=== PATIENT | male | born 1980 | race Hispanic/Latino ===

== ENCOUNTER 2017-11-11 14:55 | Emergency (ER) | payer MEDICARE, MEDICAID ==
[2017-11-11 16:02] LABS: Bilirubin Negative (Negative); Blood, Urine Large (Negative); Glucose, Urine (Dipstick) >=1000 mg/dL (Negative); Leukocyte Moderate (Negative); Nitrite Negative (Negative); Protein, Urine (Dipstick) 100 mg/dL (Neg-Trace); Urobilinogen 0.2 mg/dL (0.2-1.0); pH, Urine 6.5 (5.0-9.0)
[2017-11-11 16:03] LABS: Clarity Hazy (Clear)
[2017-11-11 16:20] LABS: Bacteria/HPF 1+ HPF (None Seen); Hyaline Casts/LPF NONE SEEN LPF (0-3 Hyaline)
[2017-11-11] MEDS ORDERED: Sulfameth/Trimethoprim DS 800-160mg TAB ONE (16:44)
[2017-11-11] MEDS ORDERED: Lidocaine 1% PF 5 ML VIAL ONE (16:45)
[2017-11-11] MEDS ORDERED: cefTRIAXone\\ROCEPHIN 1 GM VIAL ONE (16:45)
== END 2017-11-11 17:22 | disposition home or self-care (01) ==
LOC: ERS 14:55
DX: N30.91 Cystitis, unspecified with hematuria (principal); E11.9 Type 2 diabetes mellitus without complications; F31.9 Bipolar disorder, unspecified
CPT/HCPCS: 81003; 81015; 87086; 96372; J0696; J2001

== ENCOUNTER 2019-09-27 22:12 | Emergency (ER) | payer MEDICARE, MEDICAID ==
[2019-09-27 22:42] LABS: #Eosinphils 0.1 thou/uL (0.0-0.7); #Lymphocytes 2.1 thou/uL (1.20-3.40); #Monocytes 0.8 thou/uL (0.11-0.59); #Neutrophils 4.5 thou/uL (1.40-6.50); %Basophils 0.6 % (0.0-1.0); %Lymphocytes 27.5 % (21.0-51.0); %Neutrophils 59.9 % (42.0-75.0); Hemoglobin 10.6 g/dL (14.0-18.0); Mean Corpuscular HGB CONC 33.7 g/dL (32.0-36.0); Mean Corpuscular Hemoglobin 30.1 pg (27.0-31.0); Mean Corpuscular Volume 89.3 fL (78.0-98.0); Mean Platelet Volume 8.5 fL (7.4-10.4); Platelet Count 113 thou/uL (130-400); Red Blood Cell (RBC) Count 3.53 mill/uL (4.70-6.10); White Blood Cell (WBC) Count 7.5 thou/uL (4.8-10.8)
[2019-09-27] MEDS ORDERED: Lorazepam 2 MG/ML VIAL ONE (22:45)
--- NOTE | 2019-09-27 22:46 | CT ---
CT head noncontrast HISTORY: Seizure. COMPARISON: 09/07/2016. FINDINGS: There is no evidence of acute intracranial hemorrhage or infarct. Mild distention of the ventricular system is similar in appearance to the previous study. There is no mass effect or shift of midline structures. Visualized paranasal sinuses remain well aerated. Elongation of the skull with the appearance of dolichocephaly is stable. IMPRESSION : No acute intracranial abnormalities are demonstrated.
[2019-09-27 23:04] LABS: ALT (SGPT) 7 U/L (8-55); AST (SGOT) 11 U/L (5-34); Albumin 2.6 g/dL (3.5-5.0); Alkaline Phosphatase 92 U/L (40-110); Anion Gap 10 mmol/L (10-20); BUN (Urea Nitrogen) 18 mg/dL (8.9-20.6); Bilirubin, Total 0.3 mg/dL (0.2-1.2); Calc. Creatinine Clearance 0 mL/min (70-130); Calcium 7.2 mg/dL (7.8-10.44); Carbon Dioxide 27 mmol/L (22-29); Chloride 96 mmol/L (98-107); Estimated GFR-MDRD 67; Globulin 3.1 g/dL (2.4-3.5); Glucose 437 mg/dL (70-105); Potassium 3.2 mmol/L (3.5-5.1); Protein, Total 5.7 g/dL (6.0-8.3); Sodium 130 mmol/L (136-145)
== END 2019-09-27 23:20 | disposition home or self-care (01) ==
LOC: ERS 22:12
DX: G40.909 Epilepsy, unspecified, not intractable, without status epilepticus (principal); E11.9 Type 2 diabetes mellitus without complications; F31.9 Bipolar disorder, unspecified; Z79.899 Other long term (current) drug therapy
CPT/HCPCS: 36415; 70450; 80053; 80164; 84146; 85025; 93005; 96374; J2060

== ENCOUNTER 2019-10-29 18:06 | Emergency (ER) | payer MEDICARE, MEDICAID ==
[2019-10-29] MEDS ORDERED: Lidocaine Viscous Sol 2% 15 ml UD Cup ONE (18:27)
[2019-10-29] MEDS ORDERED: Mag-Al 1200 mg/1200 mg/30 ML UDCUP ONE (18:27)
[2019-10-29 18:42] LABS: #Eosinphils 0.1 thou/uL (0.0-0.7); #Lymphocytes 2.4 thou/uL (1.20-3.40); #Monocytes 0.6 thou/uL (0.11-0.59); #Neutrophils 4.2 thou/uL (1.40-6.50); %Basophils 0.5 % (0.0-1.0); %Eosinophils 1.2 % (0.0-10.0); %Monocytes 8.6 % (0.0-10.0); %Neutrophils 56.7 % (42.0-75.0); Hemoglobin 12.5 g/dL (14.0-18.0); Mean Corpuscular HGB CONC 34.2 g/dL (32.0-36.0); Mean Corpuscular Hemoglobin 30.6 pg (27.0-31.0); Mean Corpuscular Volume 89.7 fL (78.0-98.0); Mean Platelet Volume 8.1 fL (7.4-10.4); Platelet Count 200 thou/uL (130-400); RBC Distribution Width 13.4 % (11.5-14.5); Red Blood Cell (RBC) Count 4.09 mill/uL (4.70-6.10); White Blood Cell (WBC) Count 7.4 thou/uL (4.8-10.8)
[2019-10-29 19:01] LABS: ALT (SGPT) 8 U/L (8-55); AST (SGOT) 13 U/L (5-34); Albumin 2.9 g/dL (3.5-5.0); Alkaline Phosphatase 108 U/L (40-110); Anion Gap 14 mmol/L (10-20); BUN (Urea Nitrogen) 32 mg/dL (8.9-20.6); Bilirubin, Total 0.2 mg/dL (0.2-1.2); Calc. Creatinine Clearance 0 mL/min (70-130); Calcium 8.2 mg/dL (7.8-10.44); Carbon Dioxide 24 mmol/L (22-29); Chloride 97 mmol/L (98-107); Estimated GFR-MDRD 64; Globulin 3.9 g/dL (2.4-3.5); Glucose 400 mg/dL (70-105); Lipase 122 U/L (8-78); Potassium 5.8 mmol/L (3.5-5.1); Protein, Total 6.8 g/dL (6.0-8.3); Sodium 129 mmol/L (136-145)
[2019-10-29 19:41] LABS: Bacteria/HPF None Seen HPF (None Seen); Bilirubin Negative (Negative); Blood, Urine 1+ (Negative); Clarity Clear (Clear); Glucose, Urine (Dipstick) Greater than 1000 mg/dL (Negative); Ketone, Urine Negative (Negative); Leukocyte Negative Leu/uL (Negative); Nitrite Negative (Negative); Protein, Urine (Dipstick) 100 mg/dL (Neg-Trace); Specific Gravity, Urine 1.021 (1.002-1.036); Squamous Epithelial None Seen HPF (0-3); Urobilinogen Normal mg/dL (Less than 2); WBC/HPF 0-3 HPF (0-3)
[2019-10-29] MEDS ORDERED: Insulin Regular 300 UNITS/3 ML VIAL ONE (19:49)
--- NOTE | 2019-10-30 09:31 | RAD ---
CHEST ONE VIEW: 10/29/19 HISTORY: Abdominal pain, chest pain. COMPARISON: Radiograph 09/29/12. FINDINGS: Abnormal peripheral opacities in the lungs. Heart size is enlarged. Pulmonary arteries are dilated. N o pneumothorax. Poor lung inspiratory effort. No acute osseous abnormality. IMPRESSION: Abnormal peripheral opacities in the lung can be seen with a typical viral infectious process. A repe at examination with full inspiration recommended. POS: HOME
== END 2019-10-29 20:04 | disposition home or self-care (01) ==
LOC: ERS 18:06
DX: R10.13 Epigastric pain (principal); R10.816 Epigastric abdominal tenderness; E11.9 Type 2 diabetes mellitus without complications; F31.9 Bipolar disorder, unspecified; Z79.899 Other long term (current) drug therapy
CPT/HCPCS: 71045; 80053; 81003; 81015; 83690; 84484; 85025; 93005; J1815

== ENCOUNTER 2019-12-03 12:13 | Observation (INO) | payer MEDICARE, MEDICAID, OTHER ==
[2019-12-03] MEDS ORDERED: Dextrose 50% Abboject 50 ML SYRINGE ONE (12:43)
--- NOTE | 2019-12-03 12:54 | RAD ---
EXAM: Single view of the chest HISTORY: Lethargy COMPARISON: 10/29/2019 FINDINGS: Single view of the chest shows an enlarged but stable cardiomediastinal silhouette. The pa tient is status post sternotomy. There is no evidence of consolidation, mass, or pleural effusion. No acute osseous abnormality. IMPRESSION: No evidence of acute cardiopulmonary disease
[2019-12-03 13:21] LABS: Base Excess-Venous 0.6 mmol/L (-2.0 to 3.0); Bicarbonate (HCO3v) 28.2 mmol/L (22.0-28.0); CO2 Tension (PvCO2) 61.2 mmHg (40.0-50.0); Calcium, Ionized 1.07 mmol/L (See Comments:); Chloride 100 mmol/L (98-107); Hemoglobin - Calc 9.4 g/dL (14.0-18.0); Potassium 3.6 mmol/L (3.5-5.1); Sodium 139 mmol/L (138-145); T. Carbon Dioxide 30.1 mmol/L (22.0-28.0); vO2 Saturation-calc 55.8 % (60.0-85.0)
[2019-12-03 13:35] LABS: Lactic Acid 1.7 mmol/L (0.5-2.2)
[2019-12-03 13:39] LABS: ALT (SGPT) Less than 7 U/L (8-55); AST (SGOT) 14 U/L (5-34); Albumin 2.6 g/dL (3.5-5.0); Alkaline Phosphatase 75 U/L (40-110); Anion Gap 15 mmol/L (10-20); BUN (Urea Nitrogen) 15 mg/dL (8.9-20.6); Bilirubin, Total 0.2 mg/dL (0.2-1.2); Calc. Creatinine Clearance 0 mL/min (70-130); Calcium 7.3 mg/dL (7.8-10.44); Carbon Dioxide 24 mmol/L (22-29); Chloride 104 mmol/L (98-107); Estimated GFR-MDRD Greater than 90; Globulin 2.8 g/dL (2.4-3.5); Glucose 68 mg/dL (70-105); Potassium 3.5 mmol/L (3.5-5.1); Protein, Total 5.4 g/dL (6.0-8.3); Sodium 139 mmol/L (136-145)
[2019-12-03 14:17] LABS: #Basophils 0.1 thou/uL (0.0-0.2); #Lymphocytes 1.4 thou/uL (1.20-3.40); #Monocytes 0.3 thou/uL (0.11-0.59); #Neutrophils 3.5 thou/uL (1.40-6.50); %Basophils 1.3 % (0.0-1.0); %Eosinophils 0.6 % (0.0-10.0); %Lymphocytes 26.6 % (21.0-51.0); %Monocytes 5.8 % (0.0-10.0); %Neutrophils 65.7 % (42.0-75.0); Hemoglobin 10.1 g/dL (14.0-18.0); Mean Corpuscular HGB CONC 32.7 g/dL (32.0-36.0); Mean Corpuscular Hemoglobin 30.6 pg (27.0-31.0); Mean Corpuscular Volume 93.7 fL (78.0-98.0); RBC Distribution Width 12.9 % (11.5-14.5); Red Blood Cell (RBC) Count 3.28 mill/uL (4.70-6.10); White Blood Cell (WBC) Count 5.3 thou/uL (4.8-10.8)
[2019-12-03 14:44] LABS: MDiff Complete? YES; Mean Platelet Volume 7.9 fL (7.4-10.4); Platelet Count 82 thou/uL (130-400); Platelet Morphology Comment Appears Decreased; Polychromasia SLIGHT = 2-3 cells (100X) (0-2/hpf)
--- NOTE | 2019-12-03 15:22 | PDOC.HHP ---
Hospitalist HPI - History of Present Illness hypoglycemia History of Present Illness: Mr. 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 patient went to PCP (Dr. Guerra) and was found to be hyperglycemic (mother can't remember how high) so was started on metformin 1000mg PO bid in addition to previous Jardiance and novolin 70/30 (80u in AM, 60u in PM). This morning, found him to be drowsy so brought him to the ED. On encounter, lying comfortably in bed. Appears mildly drowsy. Denies chest pain, palpitations, dyspnea, cough, pleuritic pain, abdominal pain, worsening diarrhea (has chronic diarrhea), dysuria, hematuria, focal weakness. ED Course: In the ED, found to be hypoglycemic, drowsy, and hypothermic, acute respiratory acidosis. Started on D10w and bear hug, alertness improved. Pending EKG Hospitalist ROS - Review of Systems Constitutional: denies: chills, sweats ENT: denies: nose discharge, nose congestion, mouth pain, mouth swelling, throat pain, throat swelling Respiratory: denies: cough, shortness of breath, pleuritic pain Cardiovascular: denies: chest pain, palpitations, orthopnea Gastrointestinal: denies: nausea, vomiting, abdominal pain, diarrhea Genitourinary: denies: dysuria, frequency, hematuria Hospitalist History - Past Medical History Source: family Cardiac: reports: CHF, Valve insufficiency SPRAGGER: reports: Other (mental retardation, cerebral palsy) Heme/Onc: reports: Anemia NOS Psych: reports: Bipolar Endocrine: reports: Diabetes - Past Surgical History Other Surgical History: tetralogy of fallot repair - Family History Family History: reports: no pertinent history - Social History Smoking Status: Never smoker Alcohol: reports: None Drugs: reports: none Living Situation: With Family (has 24 hour monitoring sitter then mother who works partition setter) Activity level: independent ambulation - Exam General Appearance: NAD General - other findings: mild drowsiness Eye: PERRL, anicteric sclera ENT: moist mucosa ENT - other findings: scaphocephalic Neck: no JVD Heart: RRR, no gallops, no rubs Heart - other findings: difficult to assess murmur, patient verbal. occasional PVC on heart monitor Respiratory: CTAB, no wheezes, no rales, no ronchi Gastrointestinal: soft, non-tender, non-distended, normal bowel sounds Extremities: 2+ LE edema Extremities - other findings: b/l equal pitting to knee level Psychiatric: normal affect, normal behavior, oriented to person, oriented to place. negative: oriented to time Psychiatric - other findings: per mother at bedside, patient is at baseline Hospitalist Results - Labs Result Diagrams: 12/03/19 14:03 12/03/19 18:18 Lab results: WBC 5.3 thou/uL (4.8-10.8) 12/03/19 14:03 Hgb 10.1 g/dL (14.0-18.0) L 12/03/19 14:03 Hct 30.8 % (42.0-52.0) L 12/03/19 14:03 MCV 93.7 fL (78.0-98.0) 12/03/19 14:03 Plt Count 82 thou/uL (130-400) L 12/03/19 14:03 Neutrophils % 65.7 % (42.0-75.0) 12/03/19 14:03 VBG pCO2 61.2 mmHg (40.0-50.0) H* 12/03/19 13:22 VBG pO2 34.1 mmHg (35.0-45.0) L 12/03/19 13:22 Sodium 139 mmol/L (136-145) 12/03/19 12:25 Potassium 3.5 mmol/L (3.5-5.1) 12/03/19 12:25 Chloride 104 mmol/L (98-107) 12/03/19 12:25 Carbon Dioxide 24 mmol/L (22-29) 12/03/19 12:25 BUN 15 mg/dL (8.9-20.6) 12/03/19 12:25 Creatinine 0.82 mg/dL (0.7-1.3) 12/03/19 12:25 Glucose 68 mg/dL (70-105) L 12/03/19 12:25 Lactic Acid 1.7 mmol/L (0.5-2.2) 12/03/19 12:25 Calcium 7.3 mg/dL (7.8-10.44) L 12/03/19 12:25 Total Bilirubin 0.2 mg/dL (0.2-1.2) 12/03/19 12:25 AST 14 U/L (5-34) 12/03/19 12:25 ALT Less than 7 U/L (8-55) L 12/03/19 12:25 Alkaline Phosphatase 75 U/L (40-110) 12/03/19 12:25 Troponin I 0.026 ng/mL (< 0.028) 12/03/19 12:25 Serum Total Protein 5.4 g/dL (6.0-8.3) L 12/03/19 12:25 Albumin 2.6 g/dL (3.5-5.0) L 12/03/19 12:25 - EKG Interpretation EKG: RBBB (unknown if old or new), LAFB (bifascicular) with nonspecific repolarization changes - Radiology Interpretation Chest x-ray Status: image reviewed by me (no acute cardiopulmonary process) Hospitalist H&P A/P - Problem (1) Hypoglycemia Code(s): E16.2 - HYPOGLYCEMIA, UNSPECIFIED Status: Acute (2) Hypothermia Code(s): T68.XXXA - HYPOTHERMIA, INITIAL ENCOUNTER Status: Acute (3) Psychomotor retardation Code(s): F45.9 - SOMATOFORM DISORDER, UNSPECIFIED Status: Acute (4) Cerebral palsy Code(s): G80.9 - CEREBRAL PALSY, UNSPECIFIED Status: Acute (5) Tetralogy of Fallot s/p repair Code(s): Z87.74 - PERSONAL HISTORY OF CONGENITAL MALFORM OF HEART AND CIRC SYS Status: Acute (6) Valvular cardiomyopathy Code(s): I42.8 - OTHER CARDIOMYOPATHIES Status: Acute - Plan Plan: * Iatrogenic symptomatic hypoglycemia * T2DM * mild hypothermia * acute type 2 respiratory failure * increased hyperglycemic medication dosage yesterday while continuing long acting meds such as jardiance * p/w symptomatic hypoglycemia * remains hypoglycemic despite d10, likely due to long acting diabetics * * hold diabetic medications; correction dose * UA to estimate activity of jardiance * hypoglycemic protocol * serum glucose if hypoglycemic based on subq * passive warming * * mental retardation * cerebral palsy * continue home meds * * full code * GI PPx: no ix * DVT PPx: lovenox *
[2019-12-03 15:58] LABS: Glucose 101 mg/dL (70-105)
[2019-12-03 17:30] LABS: Bacteria/HPF None Seen HPF (None Seen); Bilirubin Negative (Negative); Blood, Urine 1+ (Negative); Clarity Clear (Clear); Glucose, Urine (Dipstick) Greater than 1000 mg/dL (Negative); Ketone, Urine Negative (Negative); Leukocyte Negative Leu/uL (Negative); Nitrite Negative (Negative); Protein, Urine (Dipstick) 100 mg/dL (Neg-Trace); RBC/HPF 0-3 HPF (0-3); Specific Gravity, Urine 1.006 (1.002-1.036); Squamous Epithelial None Seen HPF (0-3); Urobilinogen Normal mg/dL (Less than 2); WBC/HPF 0-3 HPF (0-3)
[2019-12-03 17:43] VITALS: BMI 25.2
[2019-12-03] MEDS ORDERED: Dextrose 50% Abboject 50 ML SYRINGE SLOW IVP PRN (17:50)
[2019-12-03] MEDS ORDERED: Dextrose 5% in Water 1,000 ML IV PRN (17:50)
[2019-12-03] MEDS ORDERED: Ondansetron ODT 4 MG TAB SL PRN (18:00)
[2019-12-03] MEDS ORDERED: Sodium Chloride 0.9% 1,000 ML IV SCH (18:00)
[2019-12-03] MEDS ORDERED: Ondansetron PF 4 MG/2 ML Vial IVP PRN (18:00)
[2019-12-03] MEDS ORDERED: Acetaminophen 325 MG TAB PO PRN (18:00)
[2019-12-03 18:44] LABS: Glucose 108 mg/dL (70-105)
[2019-12-03] MEDS ORDERED: Dextrose 5 % And 0.9 % NaCl 1,000 ML IV SCH (19:45)
[2019-12-03 20:13] LABS: Hemoglobin 9.4 g/dL (14.0-18.0); Platelet Count 97 thou/uL (130-400)
[2019-12-03] MEDS ORDERED: levETIRAcetam 500 MG TAB PO SCH ×2 (21:00→22:30)
[2019-12-03] MEDS ORDERED: HumaLOG 300 UNITS/3 ML VIAL SC PRN (21:38)
[2019-12-03] MEDS: Carvedilol 3.125 MG TAB PO SCH (22:22)
[2019-12-03] MEDS: risperiDONE 1 MG TAB PO SCH (22:22)
[2019-12-03 22:35] LABS: Glucose 143 mg/dL (70-105)
[2019-12-04 05:03] LABS: #Basophils 0.1 thou/uL (0.0-0.2); #Lymphocytes 2.5 thou/uL (1.20-3.40); #Monocytes 0.8 thou/uL (0.11-0.59); #Neutrophils 5.2 thou/uL (1.40-6.50); %Basophils 0.6 % (0.0-1.0); %Eosinophils 0.3 % (0.0-10.0); %Lymphocytes 29.2 % (21.0-51.0); %Monocytes 9.3 % (0.0-10.0); %Neutrophils 60.6 % (42.0-75.0); Hemoglobin 9.3 g/dL (14.0-18.0); Mean Corpuscular HGB CONC 33.5 g/dL (32.0-36.0); Mean Corpuscular Volume 92.8 fL (78.0-98.0); Mean Platelet Volume 8.1 fL (7.4-10.4); Platelet Count 99 thou/uL (130-400); Red Blood Cell (RBC) Count 2.99 mill/uL (4.70-6.10); White Blood Cell (WBC) Count 8.6 thou/uL (4.8-10.8)
[2019-12-04 05:28] LABS: ALT (SGPT) Less than 7 U/L (8-55); AST (SGOT) 9 U/L (5-34); Albumin 2.3 g/dL (3.5-5.0); Alkaline Phosphatase 67 U/L (40-110); Anion Gap 12 mmol/L (10-20); BUN (Urea Nitrogen) 14 mg/dL (8.9-20.6); Bilirubin, Total 0.2 mg/dL (0.2-1.2); Calc. Creatinine Clearance 108 mL/min (70-130); Carbon Dioxide 27 mmol/L (22-29); Chloride 104 mmol/L (98-107); Estimated GFR-MDRD Greater than 90; Globulin 2.8 g/dL (2.4-3.5); Glucose 114 mg/dL (70-105); Potassium 3.7 mmol/L (3.5-5.1); Protein, Total 5.1 g/dL (6.0-8.3); Sodium 139 mmol/L (136-145)
[2019-12-04] MEDS ORDERED: levETIRAcetam 500 MG TAB PO SCH ×2 (09:00→21:00)
[2019-12-04] MEDS: Carvedilol 3.125 MG TAB PO SCH ×2 (09:56→20:50)
[2019-12-04] MEDS: levETIRAcetam 500 MG TAB PO SCH (09:57)
[2019-12-04] MEDS: risperiDONE 1 MG TAB PO SCH ×2 (09:58→20:49)
[2019-12-04 11:56] LABS: SARS-CoV-2 MS2 Positive; SARS-CoV-2 N Gene Negative; SARS-CoV-2 S Gene Negative; SARS-CoV-2 by NAA Not Detected (NotDetected); SARS-CoV-2 orf1ab Negative
--- NOTE | 2019-12-04 12:51 | PDOC.HOSPP ---
- Subjective Encounter Date: 12/04/19 Encounter Time: 09:00 Subjective: no overnight events. this morning, feeling well and at baseline. Has no complaints. Mother apparently injects patient with insulin inconsistently. Had that also requires persistent care, so raised option of sending patient to short term facility but mother says that son can't be without her. - Objective Vital Signs & Weight: Vital Signs (12 hours) Temp Pulse Pulse Pulse Resp BP BP 12/04/19 11:13 97.5 F L 82 20 12/04/19 08:52 71 77 126/80 139/81 12/04/19 07:22 98.3 F 76 16 12/04/19 05:00 98.4 F 73 18 BP Pulse Ox 12/04/19 11:13 133/83 98 12/04/19 08:52 12/04/19 07:22 126/80 98 12/04/19 05:00 124/77 97 Weight Weight 156 lb 4.8 oz I&O: 12/03/19 12/04/19 12/05/19 06:59 06:59 06:59 Intake Total 240 Balance 240 Result Diagrams: 12/04/19 04:37 12/04/19 04:37 Additional Labs: Accuchecks 12/04/19 12/04/19 12/03/19 11:23 06:06 17:10 POC Glucose 128 H 127 H 77 12/03/19 12/03/19 16:20 14:07 POC Glucose 86 209 H Hospitalist ROS - Review of Systems Constitutional: denies: chills, sweats Respiratory: denies: cough, shortness of breath, pleuritic pain Cardiovascular: denies: chest pain, palpitations, orthopnea, paroxysmal noc. dyspnea Gastrointestinal: denies: nausea, vomiting, abdominal pain Genitourinary: denies: dysuria, hematuria - Medication Medications: Active Medications Generic Name Dose Route Start Last Admin Trade Name Freq PRN Reason Stop Dose Admin Carvedilol 3.125 mg 12/03/19 21:00 12/04/19 09:56 Carvedilol 3.125 Mg Tab PO 3.125 mg BID CALVIN Administration Divalproex Sodium 1,000 mg 12/03/19 21:00 12/04/19 09:57 Divalproex Sodium Er 500 Mg Tablet PO 1,000 mg BID CALVIN Administration Levetiracetam 2,000 mg 12/04/19 09:00 12/04/19 09:57 Levetiracetam 500 Mg Tab PO 2,000 mg QAM CALVIN Administration Pantoprazole Sodium 40 mg 12/04/19 09:00 12/04/19 09:58 Pantoprazole 40 Mg Tab PO 40 mg DAILY CALVIN Administration Risperidone 1 mg 12/03/19 21:00 12/04/19 09:58 Risperidone 1 Mg Tab PO 1 mg BID CALVIN Administration - Exam General Appearance: NAD, awake alert Neck: no JVD Heart: RRR, no gallops Heart - other findings: decrescensdo diastolic murmur Respiratory: CTAB, no wheezes, no rales, no ronchi Gastrointestinal: soft, non-tender, non-distended, normal bowel sounds Extremities: 1+ LE edema Extremities - other findings: b/l pitting equal Psychiatric: oriented to person, oriented to place. negative: oriented to time Hosp A/P (1) Hypoglycemia Code(s): E16.2 - HYPOGLYCEMIA, UNSPECIFIED Status: Acute (2) Hypothermia Code(s): T68.XXXA - HYPOTHERMIA, INITIAL ENCOUNTER Status: Acute (3) Psychomotor retardation Code(s): F45.9 - SOMATOFORM DISORDER, UNSPECIFIED Status: Acute (4) Cerebral palsy Code(s): G80.9 - CEREBRAL PALSY, UNSPECIFIED Status: Acute (5) Tetralogy of Fallot s/p repair Code(s): Z87.74 - PERSONAL HISTORY OF CONGENITAL MALFORM OF HEART AND CIRC SYS Status: Acute (6) Valvular cardiomyopathy Code(s): I42.8 - OTHER CARDIOMYOPATHIES Status: Acute - Plan Iatrogenic symptomatic hypoglycemia * T2DM * mild hypothermia (resolved) * acute type 2 respiratory failure (resolved) * BG well controlled and stable overnight * inconsistent diabetic management; significant burden on mother even though she has some help; refused placement in facility * jardiance long half life, effect should be reduced by now * a1c grossly elevated, explained options to mother; do to lack of support, will attempt to better control BG with oral medications as per mother's request * * stop D5 fluids * start metformin low dose * mother informed to seek blanket folder to address fluctuating BG levels * hypoglycemia protocol * * mental retardation * cerebral palsy * continue home meds * * full code * GI PPx: no ix * DVT PPx: lovenox * ELOS: 1 night
[2019-12-04] MEDS: metFORMIN 500 MG TAB PO SCH (17:57)
[2019-12-04] MEDS: HumaLOG 300 UNITS/3 ML VIAL SC PRN (17:58)
[2019-12-04] MEDS: Torsemide 20 MG TAB PO SCH (20:49)
[2019-12-05 05:28] LABS: Anion Gap 12 mmol/L (10-20); BUN (Urea Nitrogen) 15 mg/dL (8.9-20.6); Calc. Creatinine Clearance 98 mL/min (70-130); Calcium 7.5 mg/dL (7.8-10.44); Carbon Dioxide 26 mmol/L (22-29); Chloride 101 mmol/L (98-107); Estimated GFR-MDRD 82; Glucose 190 mg/dL (70-105); Magnesium 2.2 mg/dL (1.6-2.6); Potassium 4.3 mmol/L (3.5-5.1); Sodium 135 mmol/L (136-145)
[2019-12-05] MEDS: HumaLOG 300 UNITS/3 ML VIAL SC PRN (05:37)
[2019-12-05] MEDS ORDERED: metFORMIN 500 MG TAB PO SCH ×2 (08:30→17:00)
[2019-12-05] MEDS: levETIRAcetam 500 MG TAB PO SCH (09:01)
[2019-12-05] MEDS: Carvedilol 3.125 MG TAB PO SCH (09:01)
[2019-12-05] MEDS: risperiDONE 1 MG TAB PO SCH (09:02)
[2019-12-05] MEDS: Torsemide 20 MG TAB PO SCH (09:02)
[2019-12-05] MEDS: metFORMIN 500 MG TAB PO SCH (09:05)
[2019-12-05 11:16] VITALS: BP 120/76; TEMP 97.5
--- NOTE | 2019-12-05 23:16 | DIS ---
DATE OF ADMISSION: 12/03/2019 DATE OF DISCHARGE: 12/05/2019 HOSPITAL COURSE: Mr. Jones is a 39-year-old male with a medical history of mental retardation, cerebral palsy, and type 2 diabetes presented with drowsiness. He was diagnosed with iatrogenic hypoglycemia. Per the mother, the patient was inconsistently administered high dosages of Novolin 70/30. In addition to that, the patient was on long-acting Jardiance. The date prior to presentation, the patient had a high blood glucose and presented to his primary care physician who reportedly prescribed him with an increased insulin regimen. During his inpatient stay, the patient initially was borderline hypoglycemic despite D10. However once the effects of Jardiance wore off, the patient was started on metformin 500 b.i.d. and his blood glucose remained in the 100 to 200 range. The patient had an A1c of around 11, however, concerning the patient's difficult social situation (the mother has to take care of both of the patient and her , who is also disabled), it was decided to not continue the patient on injectable insulin, but rather attempt to maintain the patient on oral medications, pending appointment with his primary care physician. The mother was also offered placement options, but refused arguing that the patient could not be without her, without becoming agitated. On the day of discharge, the patient's blood glucose was stable, he was feeling well, and was at baseline per the mother at bedside. PHYSICAL EXAMINATION: VITAL SIGNS: Blood pressure 120/76, pulse 78, respiratory rate 16, oxygen saturation 100% on room air, temperature 97.5. GENERAL APPEARANCE: Lying comfortably in bed, awake and alert. EYES: PERRL. Anicteric sclerae. ENT: Moist mucosa, scaphocephalic. NECK: No JVD. HEART: No gallops or rubs. Decrescendo diastolic murmur most audible at the fifth left intercostal space. RESPIRATORY: Clear to auscultation bilaterally. No wheezing, rales or rhonchi. GI: Soft, nontender, nondistended. Normal bowel sounds. EXTREMITIES: Bilateral equal pitting edema, pretibial. PSYCHIATRIC: Calm and oriented to person and place, but not to time. Per the mother, it is the patient's baseline. MEDICATION LIST: Continued medications: 1. Metformin 1000 mg oral b.i.d. with meals. 2. Torsemide. 3. Pantoprazole. 4. Levetiracetam. 5. Divalproex. 6. Coreg. 7. Risperidone. Discontinued medications: 1. Jardiance. 2. Novolin 70/30. Modified medications: No modified medications. New medications: No new medications. Job ID: [id number]
== END 2019-12-05 11:42 | disposition home or self-care (01) ==
LOC: ERS 12:13 → 2SW 15:15
PROVIDERS: ADMIT Internal Medicine; ATTEND Internal Medicine
DX: E11.649 Type 2 diabetes mellitus with hypoglycemia without coma (principal); T68.XXXA Hypothermia, initial encounter; J96.00 Acute respiratory failure, unspecified whether with hypoxia or hypercapnia; F79 Unspecified intellectual disabilities; G80.9 Cerebral palsy, unspecified; E11.10 Type 2 diabetes mellitus with ketoacidosis without coma; F31.9 Bipolar disorder, unspecified; I42.8 Other cardiomyopathies; F45.9 Somatoform disorder, unspecified; Z87.74 Personal history of (corrected) congenital malformations of heart and circulatory system; Z79.4 Long term (current) use of insulin; Z79.899 Other long term (current) drug therapy; Z88.5 Allergy status to narcotic agent; Z20.828 Contact with and (suspected) exposure to other viral communicable diseases
CPT/HCPCS: 71045; 80048; 80053 ×2; 82010; 82274; 82330; 82435; 82803; 82947; 82962 ×3; 83036; 83605; 83735; 84132; 84295; 84484; 85014; 85018; 85025 ×2; 85049; 87040; 87086; 93005; 96361; 96374; 97139 ×5; 99285; U0003; 36415; 36416; 81003; 81015; 87635; G0378

== ENCOUNTER 2019-12-09 13:14 | Inpatient (IN) | payer MEDICARE, MEDICAID, OTHER ==
[2019-12-09] MEDS ORDERED: Iopamidol-370 76% 500 ML 1 ML ONE (13:37)
--- NOTE | 2019-12-09 13:48 | RAD ---
PORTABLE CHEST 1 VIEW: Date: 12/09/2019 Time: 1331 hours HISTORY: Dyspnea. COMPARISON: 12/03/2019. FINDINGS/IMPRESSION: Postop changes of median sternotomy again seen. The heart size is prominent. There is mild pulmonary vascular congestion. No lobar consolidation, pneumothoraces, or large effusions are seen. POS: OFF
[2019-12-09 13:55] LABS: #Basophils 0.1 thou/uL (0.0-0.2); #Eosinphils 0.1 thou/uL (0.0-0.7); #Lymphocytes 2.4 thou/uL (1.20-3.40); #Monocytes 0.7 thou/uL (0.11-0.59); #Neutrophils 2.7 thou/uL (1.40-6.50); %Basophils 0.9 % (0.0-1.0); %Eosinophils 1.4 % (0.0-10.0); %Lymphocytes 41.2 % (21.0-51.0); %Monocytes 11.1 % (0.0-10.0); %Neutrophils 45.4 % (42.0-75.0); Hemoglobin 9.7 g/dL (14.0-18.0); Mean Corpuscular HGB CONC 33.8 g/dL (32.0-36.0); Mean Corpuscular Hemoglobin 31.1 pg (27.0-31.0); Mean Corpuscular Volume 91.9 fL (78.0-98.0); Mean Platelet Volume 8.6 fL (7.4-10.4); Platelet Count 113 thou/uL (130-400); RBC Distribution Width 13.7 % (11.5-14.5); Red Blood Cell (RBC) Count 3.11 mill/uL (4.70-6.10); White Blood Cell (WBC) Count 5.9 thou/uL (4.8-10.8)
[2019-12-09 14:13] LABS: ALT (SGPT) 7 U/L (8-55); AST (SGOT) 15 U/L (5-34); Albumin 2.6 g/dL (3.5-5.0); Alkaline Phosphatase 77 U/L (40-110); Anion Gap 14 mmol/L (10-20); BUN (Urea Nitrogen) 21 mg/dL (8.9-20.6); Bilirubin, Total 0.2 mg/dL (0.2-1.2); CK (CPK) 333 U/L (30-200); Calc. Creatinine Clearance 0 mL/min (70-130); Calcium 7.4 mg/dL (7.8-10.44); Carbon Dioxide 23 mmol/L (22-29); Chloride 99 mmol/L (98-107); Estimated GFR-MDRD 75; Globulin 3.1 g/dL (2.4-3.5); Glucose 187 mg/dL (70-105); Lipase 22 U/L (8-78); Potassium 5.1 mmol/L (3.5-5.1); Protein, Total 5.7 g/dL (6.0-8.3); Sodium 131 mmol/L (136-145)
[2019-12-09] MEDS ORDERED: Furosemide 40 MG/4 ML VIAL ONE (15:09)
[2019-12-09] MEDS ORDERED: Aspirin Chewable 81 MG TAB ONE (15:09)
[2019-12-09] MEDS ORDERED: Nitroglycerin 2% Ointment 1 INCH/1 GM Packet ONE (15:09)
--- NOTE | 2019-12-09 15:23 | PDOC.HHP ---
Hospitalist HPI - History of Present Illness Left facial, LUE, and abdominal swelling History of Present Illness: PCP: Dr. Guerra ([place]) The patient is a 33-year-old male with a past medical history significant for tetralogy of Fallot, DM 2, epilepsy, MR and bipolar disorder that presents to the emergency department for evaluation of the above complaint. The patient has a history of tetralogy of Fallot and is actually due to have a valve replaced, however, the surgery has been delayed secondary to COVID outbreak. For the past 2 to 3 days, the patient has noticed swelling to his left upper extremity and left side of his face. He underwent molar extraction to the left side of his mouth approximately 3 weeks ago. At follow-up, he was cleared. No complications. Denies any oral pain or difficulty chewing. He denies any recent trauma to his left upper extremity. Also, he reports mild abdominal distention with associated abdominal pain on his left side, that he describes as sharp, intermittent, only when he sleeps, exacerbated and relieved by nothing. He denies feeling nauseated or vomiting. Last bowel movement was yesterday, no straining or blood. Denies any urinary symptoms. He denies chest pain, heart palpitations, lightheadedness. He does have swelling to his bilateral lower extremities, which she says is chronic. He denies feeling short of breath, MCKEON, PND, orthopnea. Denies any fever or chills. No known sick contacts. ED Course: VITAL SIGNS SunDec 09, 2019 13:15 VALERIE Whitaker Dannette BP: 1339/89, Pulse: 76, Resp: 17, Temp: 98.9 (Oral), O2 sat: 99 on (Room Air), Time: 12/09/2019 13:15. VITAL SIGNS SunDec 09, 2019 13:33 VALERIE Aaron Rachel BP: 130/91 (Sitting), MAP: 104, Pulse: 77, Resp: 16 (Non-Labored), Pain: 0, O2 sat: 98 on (Room Air), Time: 12/09/2019 13:33. Medication administration: sodium chloride 0.9 % intravenous 1 L IV Fluid Infusion Acknowledged 15:05 12/09/2019 furosemide injection 40 mg IV Push Acknowledged 15:05 12/09/2019 Nitro-Bid transdermal 1 inch Topical Acknowledged 15:05 12/09/2019 aspirin oral 324 mg Oral Acknowledged 15:05 12/09/2019 Hospitalist ROS - Review of Systems All other systems reviewed; all pertinent +/- noted in HPI/Subj - Medication Medications: divalproex tablet extended release 24 hr : Strength - 500 mg : ORAL Patient Dose: 1000 mg Oral 2 times a day. levETIRAcetam oral tablet : Strength - 500 mg : ORAL Patient Dose: variable.4 tabs am, 3 tabs pm. risperiDONE tablet : Strength - 1 mg : ORAL Patient Dose: 1 mg Oral 2 times a day. carvedilol tablet : Strength - 3.125 mg : ORAL Patient Dose: 3.125 mg Oral 2 times a day. furosemide oral tablet : Strength - 20 mg : ORAL Patient Dose: 20-40 mg Oral ONCE. Jardiance tablet : Strength - 10 mg : ORAL Patient Dose: 10 mg Oral once a day. metFORMIN TABLET : Strength - 1,000 mg : ORAL Patient Dose: Unknown Allergies: Codeine Hospitalist History - Past Medical History Source: patient, mother, RN notes reviewed Cardiac: reports: CHF, Other (Tetralogy of Fallot) MEDICAL LABORATORY ASSISTANT: reports: Seizure (Last seizure activity 3 months ago) Heme/Onc: reports: Anemia NOS Psych: reports: Bipolar Endocrine: reports: Diabetes (Type II) - Family History Family History: reports: cancer Other Family History: Noncontributory to this case - Social History Smoking Status: Never smoker Alcohol: reports: None Drugs: reports: none Living Situation: With Family Occupation: Currently unemployed Activity level: independent ambulation - Exam General Appearance: NAD, awake alert. negative: ill appearing Eye: anicteric sclera ENT: normocephalic atraumatic Neck: supple, symmetric, no JVD Heart: RRR, no gallops, no rubs, normal peripheral pulses, III/IV Respiratory: CTAB, no wheezes, no rales, no ronchi, normal chest expansion, no tachypnea Gastrointestinal: soft, non-tender, normal bowel sounds, no bruit, no guarding, no rigidity, distended Extremities: no cyanosis, 2+ LE edema Skin: no rashes Neurological: no weakness (*), no focal deficits Psychiatric: normal affect, A&O x 3 Hospitalist Results - Labs Result Diagrams: 12/09/19 13:42 12/09/19 13:42 Lab results: WBC 5.9 thou/uL (4.8-10.8) 12/09/19 13:42 Hgb 9.7 g/dL (14.0-18.0) L 12/09/19 13:42 Hct 28.6 % (42.0-52.0) L 12/09/19 13:42 MCV 91.9 fL (78.0-98.0) 12/09/19 13:42 Plt Count 113 thou/uL (130-400) L 12/09/19 13:42 Neutrophils % 45.4 % (42.0-75.0) 12/09/19 13:42 Sodium 131 mmol/L (136-145) L 12/09/19 13:42 Potassium 5.1 mmol/L (3.5-5.1) 12/09/19 13:42 Chloride 99 mmol/L (98-107) 12/09/19 13:42 Carbon Dioxide 23 mmol/L (22-29) 12/09/19 13:42 BUN 21 mg/dL (8.9-20.6) H 12/09/19 13:42 Creatinine 1.09 mg/dL (0.7-1.3) 12/09/19 13:42 Glucose 187 mg/dL (70-105) H 12/09/19 13:42 Calcium 7.4 mg/dL (7.8-10.44) L 12/09/19 13:42 Total Bilirubin 0.2 mg/dL (0.2-1.2) 12/09/19 13:42 AST 15 U/L (5-34) 12/09/19 13:42 ALT 7 U/L (8-55) L 12/09/19 13:42 Alkaline Phosphatase 77 U/L (40-110) 12/09/19 13:42 Creatine Kinase 333 U/L (30-200) H 12/09/19 13:42 Troponin I 0.019 ng/mL (< 0.028) 12/09/19 13:42 B-Natriuretic Peptide 1812.6 pg/mL (0-100) H 12/09/19 13:42 Serum Total Protein 5.7 g/dL (6.0-8.3) L 12/09/19 13:42 Albumin 2.6 g/dL (3.5-5.0) L 12/09/19 13:42 Lipase 22 U/L (8-78) 12/09/19 13:42 - EKG Interpretation EKG: Normal sinus rhythm left axis deviation right bundle branch block pulse 79 IL 162. - Radiology Interpretation Chest x-ray Status: report reviewed by me Additional Comment: Postop changes of median sternotomy again seen. The heart size is prominent. There is mild pulmonary vascular congestion. No lobar consolidation, pneumothoraces, or large effusions are seen. CT scan - abdomen Status: report reviewed by me Additional Comment: IMPRESSION: 1. Gallbladder wall edema which can be seen with hypoproteinemia, cholecystitis in the correct clinic al scenario, or secondary to liver disease versus other etiologies. 2. Hepatomegaly. 3. Mild thickening of the ball of the urinary bladder which are more thickened than expected for degree of distention. Cystitis is a possibility. 4. Small bilateral pleural effusions, small amount of ascites, generalized mesenteric edema, and findings suggesting anasarca. 5. Nonspecific inguinal lymphadenopathy with mildly prominent mesenteric lymph nodes. 6. Cardiomegaly Hospitalist H&P A/P - Problem (1) CHF exacerbation Code(s): I50.9 - HEART FAILURE, UNSPECIFIED Status: Acute (2) Tetralogy of Fallot Code(s): Q21.3 - TETRALOGY OF FALLOT Status: Chronic (3) Hyponatremia Code(s): E87.1 - HYPO-OSMOLALITY AND HYPONATREMIA Status: Acute (4) DM type 2 (diabetes mellitus, type 2) Status: Chronic (5) Bipolar disorder Code(s): F31.9 - BIPOLAR DISORDER, UNSPECIFIED Status: Chronic (6) Epilepsy Code(s): G40.909 - EPILEPSY, UNSP, NOT INTRACTABLE, WITHOUT STATUS EPILEPTICUS Status: Chronic - Plan Plan: 39/M with PMH of tetralogy of fallot presents for swelling. Admit to telemetry floor, observation status. Expected length of stay less than 2 midnights. EKG pending CXR mild pulmonary congestion. BNP 1812, troponin 0.019, Na 131 CT abdomen/pelvis 1. Gallbladder wall edema which can be seen with hypoproteinemia, cholecystitis in the correct clinical scenario, or secondary to liver disease versus other etiologies. 2. Hepatomegaly. 3. Mild thickening of the ball of the urinary bladder which are more thickened than expected for degree of distention. Cystitis is a possibility. 4. Small bilateral pleural effusions, small amount of ascites, generalized mesenteric edema, and findings suggesting anasarca. 5. Nonspecific inguinal lymphadenopathy with mildly prominent mesenteric lymph nodes. 6. Cardiomegaly #CHF exacerbation Lasix IVP, Nitropaste DW, FR, Na restrict echocardiogram Consult cardiology Trend troponins #Tetralogy of Fallot Valve replacement delayed due to COVID outbreak #Hyponatremia Mild, Na 131 Likely d/t FVO CHF exacerbation Lasix, FR Recheck level in am. #DM2 Takes metformin and Jardiance at home. Hold home anti-hyperglycemics. Start mild ISS. AC/HS checks #Epilepsy Reports last seizure 3 months ago. Restart home dose of Depakote and Keppra. #Bipolar disorder Denies SI/HI. Takes risperidone home medication. Restart home medication. Lovenox for DVT prophylaxis. Protonix for GI prophylaxis. Full code. Designated medical decision-maker is the patient's mother, Bere Jones at [phone]. Discussed case with Dr. Mata.
[2019-12-09] MEDS ORDERED: Dextrose 50% Abboject 50 ML SYRINGE SLOW IVP PRN ×2 (15:57→20:43)
[2019-12-09] MEDS ORDERED: Dextrose 5% in Water 1,000 ML IV PRN ×2 (15:57→20:43)
[2019-12-09] MEDS ORDERED: HumaLOG 300 UNITS/3 ML VIAL SC PRN ×4 (15:57→20:44)
[2019-12-09] MEDS ORDERED: Acetaminophen 325 MG TAB PO PRN (15:59)
[2019-12-09] MEDS ORDERED: Calcium Carbonate 500 MG ChewTAB PO PRN ×2 (15:59→20:45)
[2019-12-09] MEDS ORDERED: Ondansetron ODT 4 MG TAB PO PRN ×2 (15:59→20:45)
[2019-12-09] MEDS ORDERED: Senokot S 8.6-50 MG TAB PO PRN ×2 (15:59→20:45)
[2019-12-09] MEDS ORDERED: Ondansetron PF 4 MG/2 ML Vial IVP PRN ×2 (15:59→20:45)
--- NOTE | 2019-12-09 16:10 | CT ---
CT ABDOMEN AND PELVIS WITH IV CONTRAST 12/09/2019 CLINICAL INFORMATION: Abdominal swelling and pain. COMPARISON: None. Technique: Multiple contiguous axial CT images are obtained through the abdomen and pelvis with IV contrast. Cor onal reformatted images are provided. FINDINGS: Lower Chest: Small bilateral pleural effusions are present greater on the right with volume loss pres ent at each lung base. There is very mild nonspecific prominence of pulmonary arteries at the lung bases. The heart is enlarged. Vessels: Abdominal aorta is normal in caliber. Minimal vascular calcifications are seen in the iliac arteries. Abdomen: Portal vein:This exam is obtained in arterial phase of imaging which limits evaluation of the portal veins, but there is opacification of the central portal veins which appear patent. Gallbladder: There is gallbladder wall edema present. Liver: Enlarged in craniocaudal dimensions measuring 21 cm. Spleen: within normal limits. Pancreas: within normal limits. Adrenals: within normal limits. Kidneys: within normal limits. Bowel: Normal caliber. Appendix: Not visualized secondary to unopacified structures and fluid in the pelvis. Peritoneum: Small amount of intraperitoneal free fluid is seen in the abdomen and pelvis. Mesentery and Retroperitoneum: Small amount of mesenteric edema is present with edema in a presacral location as well. Few nonspecific mildly prominent lymph nodes are seen in the central mesentery. Abdominal Wall: Mild generalized subcutaneous edema. There is a mild increase in number as well as mi ldly enlarged bilateral inguinal lymph nodes. Largest right inguinal lymph node measures 1.4 cm in short axis dimension. Pelvis: Reproductive Organs: No pelvic masses. Bladder: Ball of the urinary bladder do appear mildly thickened for degree of distention. There is a small amount of adjacent fluid. Cystitis is a possibility. Correlation with urinalysis is recommended. Bones: No suspicious lytic or sclerotic osseous lesions. IMPRESSION: 1. Gallbladder wall edema which can be seen with hypoproteinemia, cholecystitis in the correct clinic al scenario, or secondary to liver disease versus other etiologies. 2. Hepatomegaly. 3. Mild thickening of the ball of the urinary bladder which are more thickened than expected for deg ree of distention. Cystitis is a possibility. 4. Small bilateral pleural effusions, small amount of ascites, generalized mesenteric edema, and find ings suggesting anasarca. 5. Nonspecific inguinal lymphadenopathy with mildly prominent mesenteric lymph nodes. 6. Cardiomegaly.
[2019-12-09 17:18] LABS: Troponin I 0.016 ng/mL (< 0.028)
--- NOTE | 2019-12-09 18:54 | ULT ---
Exam: Left upper extremity venous ultrasound with Doppler HISTORY: Left arm swelling. COMPARISON: None TECHNIQUE: Grayscale, color flow, Doppler imaging and spectral wave form analysis of the left upper e xtremity venous system FINDINGS: There is soft tissue swelling Internal jugular vein compresses and is patent. Subclavian vein is patent Axillary vein compresses and is patent Brachial vein, basilic vein, cephalic vein, ulnar vein and radial vein compresses and are patent. IMPRESSION: 1. No evidence of thrombus in the left upper extremity deep venous system 2. Left upper extremity swelling.
[2019-12-09] MEDS ORDERED: Carvedilol 3.125 MG TAB PO SCH (21:00)
[2019-12-09] MEDS ORDERED: levETIRAcetam 500 MG TAB PO SCH (21:00)
[2019-12-09] MEDS ORDERED: risperiDONE 1 MG TAB PO SCH (21:00)
[2019-12-09] MEDS: Carvedilol 3.125 MG TAB PO SCH (21:04)
[2019-12-09] MEDS: Nitroglycerin 2% Ointment 1 INCH/1 GM Packet TOP SCH (21:04)
[2019-12-09] MEDS: risperiDONE 1 MG TAB PO SCH (21:04)
[2019-12-09] MEDS: levETIRAcetam 500 MG TAB PO SCH (21:04)
[2019-12-09] MEDS ORDERED: Nitroglycerin 2% Ointment 1 INCH/1 GM Packet TOP SCH (22:00)
[2019-12-10] MEDS: Acetaminophen 325 MG TAB PO PRN ×2 (01:37→09:41)
[2019-12-10] MEDS: Furosemide 40 MG/4 ML VIAL SLOW IVP SCH ×2 (05:03→13:41)
[2019-12-10] MEDS: Nitroglycerin 2% Ointment 1 INCH/1 GM Packet TOP SCH ×3 (05:04→20:22)
[2019-12-10 05:57] LABS: Bacteria/HPF None Seen HPF (None Seen); Bilirubin Negative (Negative); Blood, Urine 2+ (Negative); Clarity Clear (Clear); Glucose, Urine (Dipstick) 300 mg/dL (Negative); Ketone, Urine Negative (Negative); Leukocyte Negative Leu/uL (Negative); Nitrite Negative (Negative); Protein, Urine (Dipstick) 300 mg/dL (Neg-Trace); Specific Gravity, Urine 1.022 (1.002-1.036); Squamous Epithelial 0-3 HPF (0-3); Urobilinogen Normal mg/dL (Less than 2); WBC/HPF 0-3 HPF (0-3); pH, Urine 6.5 (5.0-9.0)
[2019-12-10] MEDS ORDERED: Furosemide 40 MG/4 ML VIAL SLOW IVP SCH (06:00)
[2019-12-10] MEDS ORDERED: Enoxaparin Sodium 40 MG/0.4 ML SYRINGE SC SCH (09:00)
[2019-12-10] MEDS ORDERED: Aspirin Chewable 81 MG TAB PO SCH (09:00)
[2019-12-10] MEDS ORDERED: levETIRAcetam 500 MG TAB PO SCH (09:00)
[2019-12-10] MEDS: Aspirin Chewable 81 MG TAB PO SCH (09:33)
[2019-12-10] MEDS: Carvedilol 3.125 MG TAB PO SCH ×2 (09:33→20:21)
[2019-12-10] MEDS: Enoxaparin Sodium 40 MG/0.4 ML SYRINGE SC SCH (09:34)
[2019-12-10] MEDS: levETIRAcetam 500 MG TAB PO SCH ×2 (09:34→20:21)
[2019-12-10] MEDS: risperiDONE 1 MG TAB PO SCH ×2 (09:35→20:21)
--- NOTE | 2019-12-10 17:30 | PDOC.HOSPP ---
- Subjective Encounter Date: 12/10/19 Encounter Time: 11:15 Subjective: Patient up in bed states he feels much better today. Mother at bedside - Objective Vital Signs & Weight: Vital Signs (12 hours) Temp Pulse Resp BP Pulse Ox 12/10/19 16:30 98.3 F 76 20 123/82 98 12/10/19 11:33 98.6 F 86 122/84 95 12/10/19 07:48 98.7 F 94 16 163/95 H 95 Weight Weight 172 lb 8 oz I&O: 12/09/19 12/10/19 12/11/19 06:59 06:59 06:59 Intake Total 534 Output Total 350 Balance 184 Result Diagrams: 12/09/19 13:42 12/09/19 13:42 Additional Labs: Accuchecks 12/10/19 12/10/19 12/09/19 16:49 11:40 21:11 POC Glucose 158 H 248 H 199 H Hospitalist ROS - Review of Systems Cardiovascular: denies: chest pain, palpitations, orthopnea, paroxysmal noc. dyspnea, edema, light headedness, other Gastrointestinal: denies: nausea, vomiting, abdominal pain, diarrhea, constipation, melena, hematochezia, other Musculoskeletal: reports: other (Left upper extremity mild swelling.) - Medication Medications: Active Medications Generic Name Dose Route Start Last Admin Trade Name Freq PRN Reason Stop Dose Admin Acetaminophen 650 mg 12/09/19 20:45 12/10/19 09:41 Acetaminophen 325 Mg Tab PO 650 mg Q4H PRN Administration Headache/Fever/Mild Pain (1-3) Aspirin 81 mg 12/10/19 09:00 12/10/19 09:33 Aspirin Chewable 81 Mg Tab PO 81 mg DAILY CALVIN Administration Carvedilol 3.125 mg 12/09/19 21:00 12/10/19 09:33 Carvedilol 3.125 Mg Tab PO 3.125 mg BID CALVIN Administration Divalproex Sodium 1,000 mg 12/09/19 21:00 12/10/19 09:33 Divalproex Sodium Er 500 Mg Tablet PO 1,000 mg BID CALVIN Administration Enoxaparin Sodium 40 mg 12/10/19 09:00 12/10/19 09:34 Enoxaparin Sodium 40 Mg/0.4 Ml Syringe SC 40 mg 0900 CALVIN Administration Furosemide 40 mg 12/10/19 06:00 12/10/19 13:41 Furosemide 40 Mg/4 Ml Vial SLOW IVP 40 mg 0600,1400 CALVIN Administration Insulin Human Lispro 0 units 12/09/19 20:44 12/10/19 11:50 Humalog 300 Units/3 Ml Vial SC 3 unit .MILD SLIDING SCALE PRN Administration Mild Correctional Scale Levetiracetam 2,000 mg 12/10/19 09:00 12/10/19 09:34 Levetiracetam 500 Mg Tab PO 2,000 mg QAM CALVIN Administration Levetiracetam 1,500 mg 12/09/19 21:00 12/09/19 21:04 Levetiracetam 500 Mg Tab PO 1,500 mg QPM CALVIN Administration Nitroglycerin 0.5 inch 12/09/19 22:00 12/10/19 13:41 Nitroglycerin 2% Ointment 1 Inch/1 Gm Packet TOP Not Given Q8HR CALVIN Pantoprazole Sodium 40 mg 12/10/19 09:00 12/10/19 09:35 Pantoprazole 40 Mg Tab PO 40 mg DAILY CALVIN Administration Risperidone 1 mg 12/09/19 21:00 12/10/19 09:35 Risperidone 1 Mg Tab PO 1 mg BID CALVIN Administration Senna/Docusate Sodium 2 tab 12/09/19 20:45 12/10/19 01:37 Senokot S 8.6-50 Mg Tab PO 2 tab BIDPRN PRN Administration Constipation Sodium Chloride 10 ml 12/09/19 20:45 12/10/19 05:04 Flush - Normal Saline 10 Ml Syringe IVF 10 ml PRN PRN Administration Saline Flush - Exam Neck: negative: supple, symmetric, no JVD, no thyromegaly, no lymphadenopathy, no carotid bruit, JVD Heart: negative: RRR, no murmur, no gallops, no rubs, normal peripheral pulses, irregular, diminshed peripheral pulses, murmur present, II/IV, III/IV Respiratory: negative: CTAB, no wheezes, no rales, no ronchi, normal chest expansion, no tachypnea, normal percussion, rales, rhonchi, tachypneic, wheezes Gastrointestinal: negative: soft, non-tender, non-distended, normal bowel sounds, no palpable masses, no hepatomegaly, no splenomegaly, no bruit, no guarding, no rigidity, tender to palpation, distended, diminished bowl sounds, voluntary guarding Extremities: 1+ LE edema Hosp A/P (1) CHF exacerbation Code(s): I50.9 - HEART FAILURE, UNSPECIFIED Status: Acute (2) Cerebral palsy Code(s): G80.9 - CEREBRAL PALSY, UNSPECIFIED Status: Acute (3) Tetralogy of Fallot s/p repair Code(s): Z87.74 - PERSONAL HISTORY OF CONGENITAL MALFORM OF HEART AND CIRC SYS Status: Acute (4) Bipolar disorder Code(s): F31.9 - BIPOLAR DISORDER, UNSPECIFIED Status: Chronic (5) DM type 2 (diabetes mellitus, type 2) Status: Chronic - Plan We will continue IV diuresing the patient. No indication for GISELLE or arm given patient's heart failure most likely secondary to his tetralogy of Follat. Echo pending. Patient left upper extremity Doppler was negative for DVT.
[2019-12-11] MEDS: Furosemide 40 MG/4 ML VIAL SLOW IVP SCH ×2 (05:40→14:15)
[2019-12-11 06:32] VITALS: BMI 27.7
[2019-12-11 06:34] LABS: ALT (SGPT) 7 U/L (8-55); AST (SGOT) 13 U/L (5-34); Albumin 2.6 g/dL (3.5-5.0); Alkaline Phosphatase 78 U/L (40-110); Anion Gap 13 mmol/L (10-20); BUN (Urea Nitrogen) 26 mg/dL (8.9-20.6); Bilirubin, Total 0.2 mg/dL (0.2-1.2); Calc. Creatinine Clearance 74 mL/min (70-130); Calcium 7.8 mg/dL (7.8-10.44); Carbon Dioxide 26 mmol/L (22-29); Chloride 98 mmol/L (98-107); Estimated GFR-MDRD 53; Globulin 3.1 g/dL (2.4-3.5); Glucose 164 mg/dL (70-105); Potassium 4.7 mmol/L (3.5-5.1); Protein, Total 5.7 g/dL (6.0-8.3); Sodium 132 mmol/L (136-145)
[2019-12-11 06:39] LABS: #Eosinphils 0.1 thou/uL (0.0-0.7); #Lymphocytes 2.3 thou/uL (1.20-3.40); #Monocytes 0.8 thou/uL (0.11-0.59); #Neutrophils 3.6 thou/uL (1.40-6.50); %Basophils 0.6 % (0.0-1.0); %Eosinophils 0.9 % (0.0-10.0); %Lymphocytes 33.3 % (21.0-51.0); %Monocytes 12.2 % (0.0-10.0); Hemoglobin 9.1 g/dL (14.0-18.0); Mean Corpuscular HGB CONC 32.5 g/dL (32.0-36.0); Mean Corpuscular Hemoglobin 30.9 pg (27.0-31.0); Mean Corpuscular Volume 94.9 fL (78.0-98.0); Mean Platelet Volume 8.3 fL (7.4-10.4); Platelet Count 114 thou/uL (130-400); Red Blood Cell (RBC) Count 2.95 mill/uL (4.70-6.10); White Blood Cell (WBC) Count 6.8 thou/uL (4.8-10.8)
[2019-12-11] MEDS: Nitroglycerin 2% Ointment 1 INCH/1 GM Packet TOP SCH ×3 (08:48→21:12)
[2019-12-11] MEDS: risperiDONE 1 MG TAB PO SCH ×2 (08:54→21:11)
[2019-12-11] MEDS: Enoxaparin Sodium 40 MG/0.4 ML SYRINGE SC SCH (08:54)
[2019-12-11] MEDS: Aspirin Chewable 81 MG TAB PO SCH (08:54)
[2019-12-11] MEDS: levETIRAcetam 500 MG TAB PO SCH ×2 (08:55→21:11)
[2019-12-11] MEDS: Carvedilol 3.125 MG TAB PO SCH ×2 (08:56→21:11)
--- NOTE | 2019-12-11 16:31 | PDOC.HOSPP ---
- Subjective Encounter Date: 12/11/19 Encounter Time: 11:30 Subjective: pt up in bed no complains. states he feels much better - Objective Vital Signs & Weight: Vital Signs (12 hours) Temp Pulse Resp BP Pulse Ox 12/11/19 15:23 97.7 F 76 20 120/77 98 12/11/19 11:22 98.4 F 71 16 107/78 97 12/11/19 07:48 97.8 F 75 16 126/95 H 97 Weight Weight 172 lb 6.4 oz I&O: 12/10/19 12/11/19 12/12/19 06:59 06:59 06:59 Intake Total 534 1320 480 Output Total 350 Balance 184 1320 480 Result Diagrams: 12/11/19 04:20 12/11/19 16:57 Additional Labs: Accuchecks 12/11/19 12/11/19 12/10/19 11:29 06:05 20:14 POC Glucose 174 H 152 H 165 H 12/10/19 16:49 POC Glucose 158 H Hospitalist ROS - Review of Systems Cardiovascular: denies: chest pain, palpitations, orthopnea, paroxysmal noc. dyspnea, edema, light headedness, other Gastrointestinal: denies: nausea, vomiting, abdominal pain, diarrhea, constipation, melena, hematochezia, other Genitourinary: denies: dysuria, frequency, incontinence, hematuria, retention, other - Medication Medications: Active Medications Generic Name Dose Route Start Last Admin Trade Name Freq PRN Reason Stop Dose Admin Acetaminophen 650 mg 12/09/19 20:45 12/10/19 09:41 Acetaminophen 325 Mg Tab PO 650 mg Q4H PRN Administration Headache/Fever/Mild Pain (1-3) Aspirin 81 mg 12/10/19 09:00 12/11/19 08:54 Aspirin Chewable 81 Mg Tab PO 81 mg DAILY CALVIN Administration Carvedilol 3.125 mg 12/09/19 21:00 12/11/19 08:56 Carvedilol 3.125 Mg Tab PO 3.125 mg BID CALVIN Administration Divalproex Sodium 1,000 mg 12/09/19 21:00 12/11/19 08:54 Divalproex Sodium Er 500 Mg Tablet PO 1,000 mg BID CALVIN Administration Enoxaparin Sodium 40 mg 12/10/19 09:00 12/11/19 08:54 Enoxaparin Sodium 40 Mg/0.4 Ml Syringe SC 40 mg 0900 CALVIN Administration Insulin Human Lispro 0 units 12/09/19 20:44 12/10/19 11:50 Humalog 300 Units/3 Ml Vial SC 3 unit .MILD SLIDING SCALE PRN Administration Mild Correctional Scale Levetiracetam 2,000 mg 12/10/19 09:00 12/11/19 08:55 Levetiracetam 500 Mg Tab PO 2,000 mg QAM CALVIN Administration Levetiracetam 1,500 mg 12/09/19 21:00 12/10/19 20:21 Levetiracetam 500 Mg Tab PO 1,500 mg QPM CALVIN Administration Nitroglycerin 0.5 inch 12/09/19 22:00 12/11/19 14:13 Nitroglycerin 2% Ointment 1 Inch/1 Gm Packet TOP Not Given Q8HR CALVIN Pantoprazole Sodium 40 mg 12/10/19 09:00 12/11/19 08:55 Pantoprazole 40 Mg Tab PO 40 mg DAILY CALVIN Administration Risperidone 1 mg 12/09/19 21:00 12/11/19 08:54 Risperidone 1 Mg Tab PO 1 mg BID CALVIN Administration Senna/Docusate Sodium 2 tab 12/09/19 20:45 12/10/19 01:37 Senokot S 8.6-50 Mg Tab PO 2 tab BIDPRN PRN Administration Constipation Sodium Chloride 10 ml 12/09/19 20:45 12/10/19 05:04 Flush - Normal Saline 10 Ml Syringe IVF 10 ml PRN PRN Administration Saline Flush - Exam Heart: negative: RRR, no murmur, no gallops, no rubs, normal peripheral pulses, irregular, diminshed peripheral pulses, murmur present, II/IV, III/IV Respiratory: negative: CTAB, no wheezes, no rales, no ronchi, normal chest expansion, no tachypnea, normal percussion, rales, rhonchi, tachypneic, wheezes Gastrointestinal: negative: soft, non-tender, non-distended, normal bowel sounds, no palpable masses, no hepatomegaly, no splenomegaly, no bruit, no guarding, no rigidity, tender to palpation, distended, diminished bowl sounds, voluntary guarding Extremities: 1+ LE edema Extremities - other findings: left upper ext swelling Hosp A/P (1) CHF exacerbation Code(s): I50.9 - HEART FAILURE, UNSPECIFIED Status: Acute (2) Cerebral palsy Code(s): G80.9 - CEREBRAL PALSY, UNSPECIFIED Status: Acute (3) Tetralogy of Fallot s/p repair Code(s): Z87.74 - PERSONAL HISTORY OF CONGENITAL MALFORM OF HEART AND CIRC SYS Status: Acute (4) Bipolar disorder Code(s): F31.9 - BIPOLAR DISORDER, UNSPECIFIED Status: Chronic (5) DM type 2 (diabetes mellitus, type 2) Status: Chronic - Plan We will continue IV diuresing the patient. No indication for GISELLE or arm given patient's heart failure most likely secondary to his tetralogy of Follat. Echo pending. Patient left upper extremity Doppler was negative for DVT. 12/10 patient echo indicates EF of 20 to 25% will get cardiology to see the patient. We will continue IV diuretics. Family and patient updated.
[2019-12-11 17:50] LABS: Anion Gap 12 mmol/L (10-20); BUN (Urea Nitrogen) 27 mg/dL (8.9-20.6); Calc. Creatinine Clearance 66 mL/min (70-130); Calcium 7.9 mg/dL (7.8-10.44); Carbon Dioxide 27 mmol/L (22-29); Chloride 97 mmol/L (98-107); Estimated GFR-MDRD 46; Glucose 169 mg/dL (70-105); Magnesium 2.1 mg/dL (1.6-2.6); Potassium 5.2 mmol/L (3.5-5.1); Sodium 131 mmol/L (136-145)
--- NOTE | 2019-12-11 20:40 | CON ---
DATE OF CONSULTATION: HISTORY: Jimy Jones is a 39 year old male with history of tetralogy of Fallot repair at the age of 11. His mother states that he went back to [facility] for yearly evaluations until his late teens. He then was not seen until April of this year when he started to have problems with increasing edema. He apparently was hospitalized there, diuresed, and they had determined that he needed to have another surgery with a valve replacement. However, due to COVID that was never performed, and he was sent home. He now is admitted here with increased leg edema. He denies any significant shortness of breath or chest discomfort. PAST MEDICAL HISTORY: Diabetes, seizure disorder, repair of tetralogy of Fallot. MEDICATIONS: 1. Carvedilol 3.125 b.i.d. 2. Keppra 500 mg-four in the morning, three in the afternoon. 3. Metformin 1000 mg b.i.d. 4. Protonix 40 mg daily. 5. Risperdal 1 mg b.i.d. 6. Torsemide 20 mg b.i.d. ALLERGIES: CODEINE. PHYSICAL EXAMINATION: VITAL SIGNS: Blood pressure 122/77, pulse 76, sinus rhythm on the monitor. HEENT: PERRL. He does have microcephaly. CHEST: Reveals crackles at the base. CARDIOVASCULAR: S1 and S2 normal without any S3, S4, or murmurs. ABDOMEN: Normal bowel sounds. EXTREMITIES: Reveal 2 to 3+ edema to the knee. NEUROLOGIC: Grossly intact with some slurring of speech. LABORATORY DATA: EKG reveals normal sinus rhythm with right bundle-branch block, left axis deviation. Hemoglobin 9.1, hematocrit 28.0, white count 6800, platelets 114,000. Sodium 132, potassium 4.7, chloride 98, carbon dioxide 26, BUN 26, creatinine 1.48. Echocardiogram revealed ejection fraction of 20% to 25% with moderately enlarged right ventricle and moderately reduced right ventricular systolic function, left atrial enlargement, marked right atrial enlargement, mild mitral regurgitation, trivial aortic regurgitation, trace tricuspid regurgitation, and [id number] pulmonic regurgitation. IMPRESSION: 1. History of repaired tetralogy of Fallot at age 11. 2. Severe left ventricular dysfunction. 3. Acute kidney injury with creatinine increasing from 1.09 to 1.48. 4. History of seizures. 5. Diabetes. RECOMMENDATION: With significant increase in creatinine, I will discontinue furosemide at this time until we can see what the creatinine level is on December 11. Also I would work toward trying to get him transferred back to [facility] since it sounds as if they have already evaluated him and have a treatment plan in mind. Job ID: [id number] MTDD
[2019-12-12 05:23] LABS: #Eosinphils 0.1 thou/uL (0.0-0.7); #Lymphocytes 2.6 thou/uL (1.20-3.40); #Monocytes 0.7 thou/uL (0.11-0.59); #Neutrophils 2.8 thou/uL (1.40-6.50); %Basophils 0.6 % (0.0-1.0); %Eosinophils 1.5 % (0.0-10.0); %Monocytes 11.2 % (0.0-10.0); %Neutrophils 44.7 % (42.0-75.0); Mean Corpuscular HGB CONC 33.8 g/dL (32.0-36.0); Mean Corpuscular Hemoglobin 31.6 pg (27.0-31.0); Mean Corpuscular Volume 93.3 fL (78.0-98.0); Mean Platelet Volume 8.2 fL (7.4-10.4); Platelet Count 114 thou/uL (130-400); RBC Distribution Width 13.7 % (11.5-14.5); Red Blood Cell (RBC) Count 2.85 mill/uL (4.70-6.10); White Blood Cell (WBC) Count 6.3 thou/uL (4.8-10.8)
[2019-12-12 05:28] LABS: Anion Gap 12 mmol/L (10-20); BUN (Urea Nitrogen) 29 mg/dL (8.9-20.6); Calc. Creatinine Clearance 69 mL/min (70-130); Calcium 7.5 mg/dL (7.8-10.44); Carbon Dioxide 26 mmol/L (22-29); Chloride 96 mmol/L (98-107); Estimated GFR-MDRD 49; Glucose 179 mg/dL (70-105); Sodium 129 mmol/L (136-145)
[2019-12-12] MEDS: Nitroglycerin 2% Ointment 1 INCH/1 GM Packet TOP SCH ×2 (06:27→15:17)
[2019-12-12] MEDS: levETIRAcetam 500 MG TAB PO SCH (08:19)
[2019-12-12] MEDS: risperiDONE 1 MG TAB PO SCH (08:19)
[2019-12-12] MEDS: Aspirin Chewable 81 MG TAB PO SCH (08:19)
[2019-12-12] MEDS: Carvedilol 3.125 MG TAB PO SCH (08:20)
[2019-12-12] MEDS: Enoxaparin Sodium 40 MG/0.4 ML SYRINGE SC SCH (08:20)
[2019-12-12 08:36] VITALS: TEMP 98
[2019-12-12] MEDS ORDERED: Furosemide 40 MG/4 ML VIAL SLOW IVP SCH (09:00)
[2019-12-12 11:52] VITALS: BP 117/81
--- NOTE | 2019-12-12 16:56 | PQF ---
CLINICAL DOCUMENTATION CLARIFICATION FORM: Dear Dr. Campos Date: 12/12/2019 Please exercise your independent, professional judgment in responding to the clarification form. Clinical indicators are provided on the bottom of this form for your review. Please check appropriate box(es): HEART FAILURE TYPE: [ x] Systolic / HFrEF [ ] Diastolic / HFpEF [ ] Combined Systolic / Diastolic [ ] Other diagnosis [ ] Unable to determine In addition, please specify: Present on Admission (POA): [ x ] Yes [ ] No [ ] Unable to determine For continuity of documentation, please document condition throughout progress notes and discharge summary. Thank You. To be completed by CDI/Coding staff for physician review: CLINICAL INDICATORS - SIGNS / SYMPTOMS / LABS / RESULTS AND LOCATION IN EMR *H&P 12/08 (Concepcion):Exam: Extremities 2+ LE edema CHF exacerbation. CXR mild pulmonary congestion BNP 1812 *12/10 pn (Beth) A/P: CHF exacerbation. Acute 12/10 pt echo indicates EF of 20 to 25% will get cardiology to see the pt RISKS FACTORS / RESULTS AND LOCATION IN EMR H&P 12/08 (Concepcion): hx DM2, epilepsy. MR and bipolar do. PMH CHF 12/10 Consult (Gen) Impression: Hx of repaired tetralogy of Fallot at age 11. Severe left ventricular dysfunction. TREATMENTS / RESULTS AND LOCATION IN EMR Cardiology Consult 12/10 Order 12/08-12/10: Lasix 40mg slow IVP 0600, 1400 Order 12/10: Lasix 40mg slow IVP daily. Stopped 12/10 Thank you, Anette Valero RN, [email or web address] This is a permanent part of the Medical Record [facility]
--- NOTE | 2019-12-13 02:18 | DIS ---
DATE OF ADMISSION: 12/11/2019 DATE OF DISCHARGE: 12/12/2019 DISCHARGE DIAGNOSES: 1. Shortness of breath. 2. Systolic heart failure, most likely secondary to tetralogy of Fallot. 3. Tetralogy of Fallot. 4. Diabetes. 5. Acute kidney injury. HOSPITAL COURSE: The patient is a 39-year-old male, who initially presented to the hospital with shortness of breath and left-sided swelling. He did have a left upper extremity vascular ultrasound, which was negative for any thrombus. The patient at this time had an echocardiogram, which indicated an EF of 20% to 25% with markedly enlarged right atrium and moderate to severe pulmonic regurgitation. The patient at this time was seen by Cardiology given his low EF. Cardiology recommended following up with his methods and procedures analyst in [facility]. I did get the echo report from [facility], which was done in April 2019, which indicated an EF of 40% at this time. I did speak with the patient's mother who is at the bedside in details about the patient's risk factors for sudden cardiac for lethal arrhythmia given the fact that the patient has a low EF. She understands she does not want the patient to be fitted for LifeVest, because first of all, she feels that he will not keep it on and she cannot be around him all the time. The patient does have some mental impairment and will not be able to handle the LifeVest on his own. Furthermore, she also states that she will be taking her son down to [facility] on Sunday where her methods and procedures analyst is. The patient also was noted to have mildly elevated creatinine, and she was educated to hold the Lasix and also to hold the torsemide and also to hold the metformin given the elevated creatinine and to follow up with labs as an outpatient. HOME MEDICATIONS: Will be: 1. Risperidone 1 mg b.i.d. 2. Keppra 500 mg daily. 3. Protonix 40 mg daily. 4. Divalproex 1000 mg b.i.d. 5. Coreg 3.125 b.i.d. The patient is not a candidate for GISELLE, which is against a patient with tetralogy of Fallot. The patient will be discharged today home. PHYSICAL EXAMINATION: VITAL SIGNS: Temperature 98.0, pulse 77, respiratory rate 16, O2 saturation 99% on room air, blood pressure 117/81. GENERAL: He is awake, alert, and oriented x3. Does not appear in distress. CV: S1, S2 present. No murmurs, rubs, or gallops. He still has the left upper extremity swelling, which has significantly improved per mom. Also, the patient had a CT of abdomen and pelvis done while he was in the hospital with some IV contrast, which indicated gallbladder wall edema; however, the patient had no abdominal pain, nausea, or vomiting. Small bilateral effusion was also noted, and nonspecific mesenteric lymphadenopathy also was noted. The patient's urine was essentially normal. Job ID: [id number]
--- NOTE | 2019-12-15 22:47 | PQF ---
Dear : Stacy Campos Date 12/15/19 Please exercise your independent, professional judgment in responding to the clarification form. Clinical indicators are provided on the bottom of this form for your review Can you please further clarify if Tetralogy of Fallot is a current condition or not? Please check appropriate box(es): [ x] Tetralogy of Fallot is a current condition [ ] Tetralogy of Fallot history only and resolved [ ] Other diagnosis please specify [ ] Unable to determine Physician Signature: Date/Time: For continuity of documentation, please document condition throughout progress notes and discharge summary. Thank You. o be completed by CDI/Coding staff for physician review: Present Clinical Indicators - Signs / Symptoms / Labs Results and Location in Medical Record [ x ] Past medical history of tetralogy of fallot H and P pg.1 [ x ] Past surgical hx: tetralogy of fallot repair ED Provider pg.1 [ x ] Personal history of congenital malformation if heart and circulatory system Hospitalist PN pg.4 12/09 [ x ] Tetralogy of fallot s/p repair Hospitalist PN pg.4 12/09 [ x ] Severe left ventricular dysfunction Consult pg.2 [ x ] Systolic heart failure, most likely 2/2 tetralogy of fallot DS pg.1 [ x ] Valve replacement delayed due to Covid outbreak H and P pg.6 [ x ] Shortness of breath DS pg.1 Present Risk Factors Results and Location in Medical Record [ x ] DM H and P pg.1 [ x ] CHF exacerbation H and P pg.6 [ x ] Left Ventricular dysfunction Consult 12/10 [ x ] Mitral,aorta,tricuspid and pulmonic valve regurgitation Consult 12/10 Present Treatments Results and Location in Medical Record [ x ] Echocardiogram Echocardiogram 12/09 [ x ] Chest X ray 12/08 Chest X ray 12/08 [ x ] EKG H and P pg.4 [ x ] Cardiology Consult Dr. Blevins 12/10 [ x ] Lasix 40 mg IV MAR [ x ] Carvedilol 3.125mg Oral MAR 12/08 CDS/Edm Operator Signature: Leodan Payton Phone #: ext [phone] Date: 12/16/19 MARIAM
== END 2019-12-12 15:25 | disposition home or self-care (01) | DRG 291 ==
LOC: ERS 13:14 → 2SW 15:59 → ERS 17:39 → OBSVTOIN 12-11 11:19
PROVIDERS: ADMIT Internal Medicine; ATTEND Internal Medicine
DX: I50.23 Acute on chronic systolic (congestive) heart failure (principal); Q21.3 Tetralogy of Fallot; E87.1 Hypo-osmolality and hyponatremia; N17.9 Acute kidney failure, unspecified; Z20.828 Contact with and (suspected) exposure to other viral communicable diseases; E11.9 Type 2 diabetes mellitus without complications; G40.909 Epilepsy, unspecified, not intractable, without status epilepticus; G80.9 Cerebral palsy, unspecified; I10 Essential (primary) hypertension; F31.9 Bipolar disorder, unspecified; Z79.899 Other long term (current) drug therapy; Z79.84 Long term (current) use of oral hypoglycemic drugs; Z88.5 Allergy status to narcotic agent
CPT/HCPCS: 36415; 36416; 71045; 74177; 80048; 80053; 81001; 82550; 83690; 83735; 83880; 84443; 84484; 85025; 93005; 93306; 96361; 96372; 96374; 96376; 97139; G0378; J1650; J1940; Q9967

== ENCOUNTER 2020-10-01 12:42 | Emergency (ER) | payer MEDICARE, MEDICAID ==
[2020-10-01 13:50] LABS: #Eosinphils 0.1 thou/uL (0.0-0.7); #Neutrophils 5.8 thou/uL (1.40-6.50); %Basophils 0.2 % (0.0-1.0); %Eosinophils 0.8 % (0.0-10.0); %Lymphocytes 22.4 % (21.0-51.0); %Monocytes 11.5 % (0.0-10.0); %Neutrophils 65.2 % (42.0-75.0); Hemoglobin 7.4 g/dL (14.0-18.0); Mean Corpuscular HGB CONC 34.1 g/dL (32.0-36.0); Mean Corpuscular Hemoglobin 31.9 pg (27.0-31.0); Mean Corpuscular Volume 93.5 fL (78.0-98.0); RBC Distribution Width 13.5 % (11.5-14.5); Red Blood Cell (RBC) Count 2.32 mill/uL (4.70-6.10); White Blood Cell (WBC) Count 8.9 thou/uL (4.8-10.8)
[2020-10-01 13:59] LABS: INR-International Normal Ratio 2.6; Prothrombin Time 27.8 sec (12.0-14.7)
[2020-10-01 14:00] LABS: PTT 67.9 sec (22.9-36.1)
[2020-10-01 14:10] LABS: ALT (SGPT) Less than 7 U/L (8-55); AST (SGOT) 11 U/L (5-34); Albumin 2.5 g/dL (3.5-5.0); Alkaline Phosphatase 88 U/L (40-110); Anion Gap 9 mmol/L (10-20); BUN (Urea Nitrogen) 17 mg/dL (8.9-20.6); Bilirubin, Total 0.3 mg/dL (0.2-1.2); Calc. Creatinine Clearance 0 mL/min (70-130); Calcium 7.8 mg/dL (7.8-10.44); Carbon Dioxide 29 mmol/L (22-29); Chloride 93 mmol/L (98-107); Globulin 3.5 g/dL (2.4-3.5); Glucose 215 mg/dL (70-105); Potassium 4.1 mmol/L (3.5-5.1); Sodium 127 mmol/L (136-145)
[2020-10-01 14:42] LABS: MDiff Complete? YES; Mean Platelet Volume 6.4 fL (7.4-10.4); Platelet Count 118 thou/uL (130-400); Platelet Morphology Comment Appears Decreased; Polychromasia SLIGHT = 2-3 cells (100X) (0-2/hpf)
== END 2020-10-01 14:56 | disposition home or self-care (01) ==
LOC: ERS 12:42
DX: D50.0 Iron deficiency anemia secondary to blood loss (chronic) (principal); E11.9 Type 2 diabetes mellitus without complications
CPT/HCPCS: 36415; 80053; 84484; 85025; 85610; 85730; 86850; 86900; 86901; 93005

== ENCOUNTER 2020-10-21 17:16 | Emergency (ER) | payer MEDICARE, MEDICAID ==
[2020-10-21 19:11] LABS: #Eosinphils 0.1 thou/uL (0.0-0.7); #Lymphocytes 1.7 thou/uL (1.20-3.40); #Monocytes 0.7 thou/uL (0.11-0.59); #Neutrophils 4.5 thou/uL (1.40-6.50); %Basophils 0.6 % (0.0-1.0); %Eosinophils 1.1 % (0.0-10.0); %Lymphocytes 24.5 % (21.0-51.0); %Monocytes 10.1 % (0.0-10.0); %Neutrophils 63.7 % (42.0-75.0); Hemoglobin 8.7 g/dL (14.0-18.0); Mean Corpuscular HGB CONC 35.5 g/dL (32.0-36.0); Mean Corpuscular Hemoglobin 32.6 pg (27.0-31.0); Mean Corpuscular Volume 91.8 fL (78.0-98.0); Mean Platelet Volume 6.2 fL (7.4-10.4); Platelet Count 154 thou/uL (130-400); Red Blood Cell (RBC) Count 2.67 mill/uL (4.70-6.10)
[2020-10-21 19:35] LABS: ALT (SGPT) Less than 7 U/L (8-55); AST (SGOT) 13 U/L (5-34); Albumin 2.6 g/dL (3.5-5.0); Alkaline Phosphatase 93 U/L (40-110); Anion Gap 12 mmol/L (10-20); BUN (Urea Nitrogen) 18 mg/dL (8.9-20.6); Bilirubin, Total 0.3 mg/dL (0.2-1.2); Calc. Creatinine Clearance 0 mL/min (70-130); Calcium 7.5 mg/dL (7.8-10.44); Carbon Dioxide 27 mmol/L (22-29); Chloride 90 mmol/L (98-107); Glucose 161 mg/dL (70-105); Potassium 3.6 mmol/L (3.5-5.1); Protein, Total 6.6 g/dL (6.0-8.3); Sodium 125 mmol/L (136-145)
== END 2020-10-21 20:17 | disposition home or self-care (01) ==
LOC: ERS 17:16
DX: D64.9 Anemia, unspecified (principal); E87.1 Hypo-osmolality and hyponatremia; E11.9 Type 2 diabetes mellitus without complications
CPT/HCPCS: 36415; 80053; 85025; 86850; 86900; 86901; 99283

== ENCOUNTER 2021-01-12 13:57 | Inpatient (IN) | payer MEDICARE, MEDICAID ==
[2021-01-12 15:21] LABS: Hemoglobin 7.7 g/dL (14.0-18.0); Mean Corpuscular HGB CONC 36.1 g/dL (32.0-36.0); Mean Corpuscular Hemoglobin 35.1 pg (27.0-31.0); Mean Corpuscular Volume 97.1 fL (78.0-98.0); RBC Distribution Width 13.4 % (11.5-14.5); Red Blood Cell (RBC) Count 2.18 mill/uL (4.70-6.10); White Blood Cell (WBC) Count 4.9 thou/uL (4.8-10.8)
[2021-01-12 15:29] LABS: #Eosinphils 0.1 thou/uL (0.0-0.7); #Lymphocytes 1.8 thou/uL (1.20-3.40); #Monocytes 0.7 thou/uL (0.11-0.59); #Neutrophils 2.3 thou/uL (1.40-6.50); %Basophils 0.2 % (0.0-1.0); %Eosinophils 1.7 % (0.0-10.0); %Monocytes 13.9 % (0.0-10.0); %Neutrophils 47.3 % (42.0-75.0)
[2021-01-12 15:48] LABS: Platelet Count 98 thou/uL (130-400); Platelet Morphology Comment Appears Decreased; RBC Morphology Normal
[2021-01-12 16:02] LABS: CKMB 5.1 ng/mL (0-6.6)
[2021-01-12 16:06] LABS: ALT (SGPT) Less than 7 U/L (8-55); AST (SGOT) 16 U/L (5-34); Albumin 2.5 g/dL (3.5-5.0); Alkaline Phosphatase 92 U/L (40-110); Anion Gap 15 mmol/L (10-20); BUN (Urea Nitrogen) 19 mg/dL (8.9-20.6); Bilirubin, Total 0.3 mg/dL (0.2-1.2); Calc. Creatinine Clearance 0 mL/min (70-130); Calcium 7.5 mg/dL (7.8-10.44); Carbon Dioxide 29 mmol/L (22-29); Chloride 99 mmol/L (98-107); Globulin 3.2 g/dL (2.4-3.5); Glucose 108 mg/dL (70-105); Potassium 3.6 mmol/L (3.5-5.1); Protein, Total 5.7 g/dL (6.0-8.3); Sodium 139 mmol/L (136-145)
[2021-01-12 20:13] LABS: Troponin I 0.043 ng/mL (< 0.028)
[2021-01-12] MEDS ORDERED: Aspirin Chewable 81 MG TAB ONE (21:19)
[2021-01-12] MEDS ORDERED: Ondansetron ODT 4 MG TAB SL PRN (21:45)
[2021-01-12] MEDS ORDERED: Ondansetron PF 4 MG/2 ML Vial IVP PRN (21:45)
[2021-01-12 21:48] VITALS: BMI 24.6
[2021-01-12 23:24] LABS: Troponin I 0.042 ng/mL (< 0.028)
[2021-01-13] MEDS ORDERED: risperiDONE 1 MG TAB PO SCH (01:00)
[2021-01-13] MEDS ORDERED: Rivaroxaban 15 MG TAB PO SCH (01:00)
[2021-01-13] MEDS ORDERED: Carvedilol 3.125 MG TAB PO SCH (01:00)
[2021-01-13] MEDS ORDERED: levETIRAcetam 500 MG TAB PO SCH ×2 (01:00→21:00)
[2021-01-13] MEDS ORDERED: Acetaminophen 325 MG TAB PO PRN (02:29)
[2021-01-13] MEDS ORDERED: Dextrose 5% in Water 1,000 ML IV PRN (02:32)
[2021-01-13] MEDS ORDERED: HumaLOG 300 UNITS/3 ML VIAL SC PRN ×2 (02:32)
[2021-01-13] MEDS ORDERED: Dextrose 50% Abboject 50 ML SYRINGE SLOW IVP PRN (02:32)
[2021-01-13] MEDS: Furosemide 40 MG/4 ML VIAL SLOW IVP SCH ×2 (05:47→15:13)
[2021-01-13 05:55] LABS: #Eosinphils 0.1 thou/uL (0.0-0.7); #Lymphocytes 2.1 thou/uL (1.20-3.40); #Monocytes 0.6 thou/uL (0.11-0.59); #Neutrophils 1.9 thou/uL (1.40-6.50); %Basophils 0.4 % (0.0-1.0); %Eosinophils 1.7 % (0.0-10.0); %Lymphocytes 44.9 % (21.0-51.0); %Monocytes 12.7 % (0.0-10.0); %Neutrophils 40.4 % (42.0-75.0); Hemoglobin 7.5 g/dL (14.0-18.0); Mean Corpuscular HGB CONC 35.3 g/dL (32.0-36.0); Mean Corpuscular Hemoglobin 34.4 pg (27.0-31.0); Mean Corpuscular Volume 97.4 fL (78.0-98.0); Platelet Count 101 thou/uL (130-400); RBC Distribution Width 13.4 % (11.5-14.5); Red Blood Cell (RBC) Count 2.17 mill/uL (4.70-6.10); White Blood Cell (WBC) Count 4.8 thou/uL (4.8-10.8)
[2021-01-13 06:11] LABS: Anion Gap 11 mmol/L (10-20); BUN (Urea Nitrogen) 18 mg/dL (8.9-20.6); Calc. Creatinine Clearance 72 mL/min (70-130); Calcium 7.7 mg/dL (7.8-10.44); Carbon Dioxide 33 mmol/L (22-29); Chloride 99 mmol/L (98-107); Glucose 110 mg/dL (70-105); Potassium 3.5 mmol/L (3.5-5.1); Sodium 139 mmol/L (136-145)
[2021-01-13 07:37] LABS: SARS-CoV-2 PCR by NAA Not Detected (NotDetected)
[2021-01-13] MEDS: levETIRAcetam 500 MG TAB PO SCH (08:47)
[2021-01-13] MEDS: metFORMIN 500 MG TAB PO SCH (08:48)
[2021-01-13] MEDS: Ergocalciferol 1.25 MG(50,000 UNITS) CAP PO SCH (08:49)
[2021-01-13] MEDS: risperiDONE 1 MG TAB PO SCH ×2 (08:49→21:02)
[2021-01-13] MEDS: Carvedilol 3.125 MG TAB PO SCH ×2 (08:49→21:02)
[2021-01-13] MEDS: Rivaroxaban 15 MG TAB PO SCH ×2 (08:49→17:28)
[2021-01-13] MEDS ORDERED: Furosemide 20 MG TAB PO SCH (09:00)
[2021-01-13 09:44] LABS: Hemoglobin A1c 5.5 % (4.0-6.0)
[2021-01-13 09:45] LABS: Cardiac Risk 4.9 (Less than 4.5)
[2021-01-13] MEDS: Bumetanide 1 MG TAB PO SCH (16:57)
[2021-01-13] MEDS ORDERED: Lantus 1000 UNITS/10 ML VIAL SC SCH (21:00)
[2021-01-14] MEDS ORDERED: Metolazone 2.5 MG TAB PO SCH (07:00)
[2021-01-14 07:06] LABS: Albumin 2.5 g/dL (3.5-5.0); Anion Gap 9 mmol/L (10-20); BUN (Urea Nitrogen) 21 mg/dL (8.9-20.6); BUN/Creatinine Ratio 12.28; Calc. Creatinine Clearance 58 mL/min (70-130); Calcium 7.6 mg/dL (7.8-10.44); Carbon Dioxide 32 mmol/L (22-29); Chloride 97 mmol/L (98-107); Glucose 156 mg/dL (70-105); Potassium 3.4 mmol/L (3.5-5.1); Sodium 135 mmol/L (136-145)
[2021-01-14] MEDS ORDERED: Potassium Chloride 20 MEQ TAB PO SCH (07:30)
[2021-01-14 07:54] VITALS: BP 147/74; TEMP 98.2
[2021-01-14] MEDS ORDERED: Rivaroxaban 15 MG TAB PO SCH (08:00)
[2021-01-14 08:18] LABS: Magnesium 1.9 mg/dL (1.6-2.6)
[2021-01-14] MEDS: levETIRAcetam 500 MG TAB PO SCH (08:30)
[2021-01-14] MEDS: Carvedilol 3.125 MG TAB PO SCH (08:31)
[2021-01-14] MEDS: metFORMIN 500 MG TAB PO SCH (08:31)
[2021-01-14] MEDS: Ergocalciferol 1.25 MG(50,000 UNITS) CAP PO SCH (08:32)
[2021-01-14] MEDS: risperiDONE 1 MG TAB PO SCH (08:32)
[2021-01-14] MEDS: Bumetanide 1 MG TAB PO SCH (08:46)
[2021-01-15] MEDS ORDERED: FLU VACC QS2021-22(6MOS UP)/PF 60 MCG/0.5 ML SYRINGE IM ONE (09:00)
== END 2021-01-14 12:30 | disposition home or self-care (01) | DRG 292 ==
LOC: ERS 13:57 → 2SW 20:32 → OBSVTOIN 01-13 14:16
PROVIDERS: ADMIT Student in an Organized Health Care Education/Training Program; ATTEND Internal Medicine
DX: I50.43 Acute on chronic combined systolic (congestive) and diastolic (congestive) heart failure (principal); I42.8 Other cardiomyopathies; Z20.822 Contact with and (suspected) exposure to COVID-19; E11.22 Type 2 diabetes mellitus with diabetic chronic kidney disease; N18.9 Chronic kidney disease, unspecified; G80.9 Cerebral palsy, unspecified; G40.909 Epilepsy, unspecified, not intractable, without status epilepticus; F45.9 Somatoform disorder, unspecified; D64.9 Anemia, unspecified; F31.9 Bipolar disorder, unspecified; Z88.5 Allergy status to narcotic agent; Z79.4 Long term (current) use of insulin; Z79.899 Other long term (current) drug therapy; Z98.890 Other specified postprocedural states; Z86.718 Personal history of other venous thrombosis and embolism; Z87.74 Personal history of (corrected) congenital malformations of heart and circulatory system; Z95.2 Presence of prosthetic heart valve
CPT/HCPCS: 36415; 36416; 71045; 80048; 80053; 80061; 80069; 82553; 83036; 83735; 83880; 84484; 85025; 93005; 93306; 93798; 97139; J1940; U0003; U0005

== ENCOUNTER 2022-01-27 13:36 | Inpatient (IN) | payer MEDICARE, MEDICAID ==
[2022-01-27 14:33] LABS: #Lymphocytes 0.9 thou/uL (1.20-3.40); #Monocytes 1.3 thou/uL (0.11-0.59); #Neutrophils 7.8 thou/uL (1.40-6.50); %Basophils 0.1 % (0.0-1.0); %Monocytes 13.3 % (0.0-10.0); %Neutrophils 77.5 % (42.0-75.0); Hemoglobin 8.3 g/dL (14.0-18.0); Mean Platelet Volume 7.8 fL (7.4-10.4); Platelet Count 75 10x3/uL (130-400); RBC Distribution Width 12.2 % (11.5-14.5); Red Blood Cell (RBC) Count 2.36 mill/uL (4.70-6.10)
[2022-01-27 14:57] LABS: ALT (SGPT) 20 U/L (8-55); AST (SGOT) 40 U/L (5-34); Albumin 2.6 g/dL (3.5-5.0); Alkaline Phosphatase 57 U/L (40-110); Anion Gap 15 mmol/L (10-20); BUN (Urea Nitrogen) 38 mg/dL (8.9-20.6); Bilirubin, Total 0.3 mg/dL (0.2-1.2); Calc. Creatinine Clearance 0 mL/min (70-130); Calcium 7.7 mg/dL (7.8-10.44); Carbon Dioxide 20 mmol/L (22-29); Chloride 106 mmol/L (98-107); Estimated GFR 32; Globulin 3.3 g/dL (2.4-3.5); Glucose 175 mg/dL (70-105); Potassium 4.9 mmol/L (3.5-5.1); Protein, Total 5.9 g/dL (6.0-8.3); Sodium 136 mmol/L (136-145)
[2022-01-27] MEDS ORDERED: Aspirin Chewable 81 MG TAB ONE (15:39)
[2022-01-27] MEDS ORDERED: Furosemide 40 MG/4 ML VIAL ONE (15:39)
[2022-01-27 15:51] LABS: CKMB 5.1 ng/mL (0-6.6)
[2022-01-27] MEDS ORDERED: Dextrose 50% Abboject 50 ML SYRINGE SLOW IVP PRN (16:24)
[2022-01-27] MEDS ORDERED: HumaLOG 300 UNITS/3 ML VIAL SC PRN (16:24)
[2022-01-27] MEDS ORDERED: Dextrose 5% in Water 1,000 ML IV PRN (16:24)
[2022-01-27] MEDS ORDERED: Ondansetron ODT 4 MG TAB PO PRN (16:27)
[2022-01-27] MEDS ORDERED: Senokot S 8.6-50 MG TAB PO PRN (16:27)
[2022-01-27 17:09] LABS: Bacteria/HPF None Seen HPF (None Seen); Bilirubin Negative (Negative); Blood, Urine 1+ (Negative); Clarity Clear (Clear); Glucose, Urine (Dipstick) Greater than 1000 mg/dL (Negative); Ketone, Urine Negative (Negative); Leukocyte Negative Leu/uL (Negative); Nitrite Negative (Negative); Protein, Urine (Dipstick) 100 mg/dL (Neg-Trace); Specific Gravity, Urine 1.009 (1.002-1.036); Squamous Epithelial None Seen HPF (0-3); Urobilinogen Normal mg/dL (Less than 2); WBC/HPF 0-3 HPF (0-3); pH, Urine 5.5 (5.0-9.0)
[2022-01-27 17:47] LABS: Hemoglobin A1c 6.2 % (4.0-6.0)
[2022-01-27 17:48] VITALS: BMI 24.0
[2022-01-27 18:35] LABS: Troponin I 1.652 ng/mL (< 0.028)
[2022-01-27 18:38] LABS: SARS-CoV-2 NAA Rapid Test Not Detected (NotDetected)
[2022-01-27] MEDS ORDERED: Oseltamivir 75 MG CAP PO SCH (18:45)
[2022-01-27 20:58] LABS: Troponin I 1.733 ng/mL (< 0.028)
[2022-01-27 21:25] LABS: Creatinine, Urine 30.45 mg/dL (63-166)
[2022-01-27] MEDS: levETIRAcetam 500 MG TAB PO SCH (21:52)
[2022-01-27] MEDS: Carvedilol 3.125 MG TAB PO SCH (21:52)
[2022-01-27] MEDS: risperiDONE 1 MG TAB PO SCH (21:53)
[2022-01-27 23:39] LABS: Critical Call Chem Troponin I RESULT DECREASING; Troponin I 1.551 ng/mL (< 0.028)
[2022-01-28 02:02] LABS: #Lymphocytes 0.7 thou/uL (1.20-3.40); #Monocytes 0.9 thou/uL (0.11-0.59); #Neutrophils 7.9 thou/uL (1.40-6.50); %Lymphocytes 7.4 % (21.0-51.0); %Monocytes 9.6 % (0.0-10.0); %Neutrophils 82.9 % (42.0-75.0); Hemoglobin 8.9 g/dL (14.0-18.0); Mean Corpuscular HGB CONC 32.6 g/dL (32.0-36.0); Mean Corpuscular Hemoglobin 34.2 pg (27.0-31.0); Platelet Count 78 10x3/uL (130-400); RBC Distribution Width 12.2 % (11.5-14.5); White Blood Cell (WBC) Count 9.6 10x3/uL (4.8-10.8)
[2022-01-28 02:33] LABS: Anion Gap 15 mmol/L (10-20); BUN (Urea Nitrogen) 44 mg/dL (8.9-20.6); Calc. Creatinine Clearance 42 mL/min (70-130); Calcium 7.9 mg/dL (7.8-10.44); Carbon Dioxide 22 mmol/L (22-29); Chloride 103 mmol/L (98-107); Estimated GFR 36; Glucose 237 mg/dL (70-105); Potassium 4.8 mmol/L (3.5-5.1); Sodium 135 mmol/L (136-145)
[2022-01-28 02:36] LABS: Troponin I 1.756 ng/mL (< 0.028)
[2022-01-28] MEDS: Furosemide 40 MG/4 ML VIAL SLOW IVP SCH ×2 (06:15→14:59)
[2022-01-28] MEDS: Benzonatate 100 MG CAP PO SCH ×3 (06:15→20:43)
[2022-01-28] MEDS ORDERED: Heparin 10,000 UNITS/ 10 ML VIAL SLOW IVP SCH (07:30)
[2022-01-28 08:14] LABS: Hemoglobin 8.8 g/dL (14.0-18.0); Platelet Count 85 10x3/uL (130-400)
[2022-01-28] MEDS ORDERED: FLU VACC QS2022-23(6MOS UP)/PF 60 MCG/0.5 ML SYRINGE IM ONE (09:00)
[2022-01-28] MEDS: levETIRAcetam 500 MG TAB PO SCH ×2 (10:25→20:43)
[2022-01-28] MEDS: Carvedilol 3.125 MG TAB PO SCH ×2 (10:25→20:43)
[2022-01-28] MEDS: risperiDONE 1 MG TAB PO SCH ×2 (10:26→20:44)
[2022-01-28] MEDS: Heparin 25,000 units/D5W 500 ML IVPB SCH (10:47)
[2022-01-28] MEDS: Oseltamivir 6 MG/ML ORAL SUSP PO SCH ×2 (12:44→20:43)
[2022-01-28] MEDS ORDERED: Aspirin 325 mg Enteric Coated Tablet PO SCH (16:15)
[2022-01-28] MEDS: HumaLOG 300 UNITS/3 ML VIAL SC PRN (17:21)
[2022-01-28] MEDS: Acetaminophen 325 MG TAB PO PRN (20:43)
[2022-01-29] MEDS: Acetaminophen 325 MG TAB PO PRN ×2 (02:46→17:42)
[2022-01-29 05:43] LABS: #Lymphocytes 0.9 thou/uL (1.20-3.40); #Monocytes 0.9 thou/uL (0.11-0.59); #Neutrophils 5.2 thou/uL (1.40-6.50); %Basophils 0.6 % (0.0-1.0); %Eosinophils 0.1 % (0.0-10.0); %Lymphocytes 12.5 % (21.0-51.0); %Monocytes 12.4 % (0.0-10.0); %Neutrophils 74.5 % (42.0-75.0); Hemoglobin 7.6 g/dL (14.0-18.0); Mean Corpuscular HGB CONC 32.5 g/dL (32.0-36.0); Mean Corpuscular Hemoglobin 33.3 pg (27.0-31.0); Mean Platelet Volume 8.2 fL (7.4-10.4); Platelet Count 73 10x3/uL (130-400); RBC Distribution Width 12.2 % (11.5-14.5); Red Blood Cell (RBC) Count 2.29 mill/uL (4.70-6.10)
[2022-01-29 05:54] LABS: Anion Gap 12 mmol/L (10-20); BUN (Urea Nitrogen) 46 mg/dL (8.9-20.6); Calc. Creatinine Clearance 42 mL/min (70-130); Calcium 7.6 mg/dL (7.8-10.44); Carbon Dioxide 24 mmol/L (22-29); Chloride 100 mmol/L (98-107); Estimated GFR 36; Glucose 204 mg/dL (70-105); Potassium 4.5 mmol/L (3.5-5.1); Sodium 131 mmol/L (136-145)
[2022-01-29] MEDS: HumaLOG 300 UNITS/3 ML VIAL SC PRN (06:14)
[2022-01-29] MEDS: Furosemide 40 MG/4 ML VIAL SLOW IVP SCH ×2 (06:14→14:42)
[2022-01-29] MEDS: Carvedilol 3.125 MG TAB PO SCH ×2 (09:49→20:42)
[2022-01-29] MEDS: Benzonatate 100 MG CAP PO SCH ×3 (09:49→20:42)
[2022-01-29] MEDS: risperiDONE 1 MG TAB PO SCH ×2 (09:49→20:42)
[2022-01-29] MEDS: Aspirin 325 mg Enteric Coated Tablet PO SCH (09:49)
[2022-01-29] MEDS: levETIRAcetam 500 MG TAB PO SCH ×2 (09:49→20:42)
[2022-01-29] MEDS: Oseltamivir 6 MG/ML ORAL SUSP PO SCH ×2 (09:53→20:42)
[2022-01-29] MEDS: Heparin 25,000 units/D5W 500 ML IVPB SCH (16:52)
[2022-01-30 05:42] LABS: Anion Gap 11 mmol/L (10-20); BUN (Urea Nitrogen) 56 mg/dL (8.9-20.6); Calc. Creatinine Clearance 41 mL/min (70-130); Calcium 7.4 mg/dL (7.8-10.44); Carbon Dioxide 26 mmol/L (22-29); Chloride 99 mmol/L (98-107); Estimated GFR 35; Glucose 180 mg/dL (70-105); Potassium 4.3 mmol/L (3.5-5.1); Sodium 132 mmol/L (136-145)
[2022-01-30 05:53] LABS: #Lymphocytes 0.9 thou/uL (1.20-3.40); #Monocytes 0.5 thou/uL (0.11-0.59); #Neutrophils 4.6 thou/uL (1.40-6.50); %Eosinophils 0.1 % (0.0-10.0); %Lymphocytes 15.5 % (21.0-51.0); %Monocytes 8.5 % (0.0-10.0); %Neutrophils 75.9 % (42.0-75.0); Hemoglobin 7.9 g/dL (14.0-18.0); Mean Corpuscular HGB CONC 33.2 g/dL (32.0-36.0); Mean Corpuscular Hemoglobin 33.5 pg (27.0-31.0); Mean Platelet Volume 8.4 fL (7.4-10.4); Platelet Count 70 10x3/uL (130-400); Red Blood Cell (RBC) Count 2.35 mill/uL (4.70-6.10); White Blood Cell (WBC) Count 6.1 10x3/uL (4.8-10.8)
[2022-01-30] MEDS: Acetaminophen 325 MG TAB PO PRN (06:14)
[2022-01-30] MEDS: HumaLOG 300 UNITS/3 ML VIAL SC PRN ×2 (06:14→17:08)
[2022-01-30] MEDS: Furosemide 40 MG/4 ML VIAL SLOW IVP SCH (06:14)
[2022-01-30 07:53] LABS: Hemoglobin 7.5 g/dL (14.0-18.0); Platelet Count 74 10x3/uL (130-400)
[2022-01-30] MEDS ORDERED: EPOETIN ALFA-EPBX (ESRD) 10,000 UNIT/ML VIAL SC SCH (08:30)
[2022-01-30] MEDS ORDERED: Albumin 25% 25 GM/100 ML BOT IVPB SCH (08:30)
[2022-01-30 08:59] LABS: Iron 13 ug/dL (65-175); Iron Binding Capacity, Total 148 mcg/dL (261-462)
[2022-01-30] MEDS: Carvedilol 3.125 MG TAB PO SCH ×2 (10:31→20:42)
[2022-01-30] MEDS: Aspirin 325 mg Enteric Coated Tablet PO SCH (10:31)
[2022-01-30] MEDS: Benzonatate 100 MG CAP PO SCH ×3 (10:31→20:42)
[2022-01-30] MEDS: risperiDONE 1 MG TAB PO SCH ×2 (10:32→20:42)
[2022-01-30] MEDS: levETIRAcetam 500 MG TAB PO SCH ×2 (10:32→20:42)
[2022-01-30] MEDS: Oseltamivir 6 MG/ML ORAL SUSP PO SCH ×2 (11:00→20:42)
[2022-01-30] MEDS: Iron, Sodium Ferric Gluconate 250 MG in Sodium Chloride 0.9% 250 ML 250 ML IVPB SCH (13:34)
[2022-01-30 21:09] LABS: Campy jejuni + coli by PCR Negative (Negative); STEC Shiga Toxin 1+2 Negative (Negative); Salmonella spp. by PCR Negative (Negative); Shigella spp + EIEC by PCR Negative (Negative)
[2022-01-31] MEDS: Heparin 25,000 units/D5W 500 ML IVPB SCH
[2022-01-31 05:19] LABS: #Monocytes 1.3 thou/uL (0.11-0.59); #Neutrophils 6.9 thou/uL (1.40-6.50); %Eosinophils 0.1 % (0.0-10.0); %Monocytes 13.9 % (0.0-10.0); %Neutrophils 74.9 % (42.0-75.0); Hemoglobin 7.5 g/dL (14.0-18.0); Mean Corpuscular HGB CONC 34.3 g/dL (32.0-36.0); Mean Corpuscular Hemoglobin 34.5 pg (27.0-31.0); Platelet Count 70 10x3/uL (130-400); RBC Distribution Width 11.9 % (11.5-14.5); Red Blood Cell (RBC) Count 2.16 mill/uL (4.70-6.10); White Blood Cell (WBC) Count 9.2 10x3/uL (4.8-10.8)
[2022-01-31 05:33] LABS: Albumin 2.5 g/dL (3.5-5.0); Anion Gap 11 mmol/L (10-20); BUN (Urea Nitrogen) 55 mg/dL (8.9-20.6); BUN/Creatinine Ratio 26.07; Calc. Creatinine Clearance 45 mL/min (70-130); Calcium 7.5 mg/dL (7.8-10.44); Carbon Dioxide 24 mmol/L (22-29); Chloride 99 mmol/L (98-107); Estimated GFR 40; Glucose 173 mg/dL (70-105); Phosphorus 4.3 mg/dL (2.3-4.7); Potassium 4.1 mmol/L (3.5-5.1); Sodium 130 mmol/L (136-145)
[2022-01-31] MEDS: Aspirin 325 mg Enteric Coated Tablet PO SCH (10:15)
[2022-01-31] MEDS: Benzonatate 100 MG CAP PO SCH ×3 (10:15→21:31)
[2022-01-31] MEDS: Albumin 25% 25 GM/100 ML BOT IVPB SCH ×2 (10:15→16:53)
[2022-01-31] MEDS: levETIRAcetam 500 MG TAB PO SCH ×2 (10:16→21:31)
[2022-01-31] MEDS: Carvedilol 3.125 MG TAB PO SCH ×2 (10:16→21:32)
[2022-01-31] MEDS: Oseltamivir 6 MG/ML ORAL SUSP PO SCH ×2 (10:17→21:32)
[2022-01-31] MEDS: risperiDONE 1 MG TAB PO SCH ×2 (10:17→21:31)
[2022-01-31] MEDS: Iron, Sodium Ferric Gluconate 250 MG in Sodium Chloride 0.9% 250 ML 250 ML IVPB SCH (14:30)
[2022-02-01 04:36] LABS: Creatinine, Urine 81.1 mg/dL (63-166)
[2022-02-01 06:00] LABS: Albumin 2.8 g/dL (3.5-5.0); Anion Gap 12 mmol/L (10-20); BUN (Urea Nitrogen) 61 mg/dL (8.9-20.6); Calc. Creatinine Clearance 39 mL/min (70-130); Calcium 7.7 mg/dL (7.8-10.44); Carbon Dioxide 25 mmol/L (22-29); Chloride 96 mmol/L (98-107); Estimated GFR 33; Glucose 180 mg/dL (70-105); Phosphorus 4.5 mg/dL (2.3-4.7); Potassium 3.8 mmol/L (3.5-5.1); Sodium 129 mmol/L (136-145)
[2022-02-01 06:30] LABS: Mean Corpuscular HGB CONC 33.7 g/dL (32.0-36.0); Mean Corpuscular Hemoglobin 33.5 pg (27.0-31.0); Mean Corpuscular Volume 99.3 fl (78.0-98.0); Platelet Count 64 10x3/uL (130-400); Red Blood Cell (RBC) Count 2.08 mill/uL (4.70-6.10); White Blood Cell (WBC) Count 5.3 10x3/uL (4.8-10.8)
[2022-02-01] MEDS: Aspirin 325 mg Enteric Coated Tablet PO SCH (09:42)
[2022-02-01] MEDS: Benzonatate 100 MG CAP PO SCH ×3 (09:42→20:40)
[2022-02-01] MEDS: Carvedilol 3.125 MG TAB PO SCH ×2 (09:43→20:41)
[2022-02-01] MEDS: levETIRAcetam 500 MG TAB PO SCH ×2 (09:43→20:42)
[2022-02-01] MEDS: risperiDONE 1 MG TAB PO SCH ×2 (09:44→20:42)
[2022-02-01] MEDS: Oseltamivir 6 MG/ML ORAL SUSP PO SCH (09:44)
[2022-02-01] MEDS ORDERED: Sodium Chloride 0.9% 1,000 ML IV SCH (10:00)
[2022-02-01 11:00] LABS: Band 19 % (5-11); Lymphocytes 33 % (21-51); MDiff Complete? YES; Metamyelocyte 4 % (0-0); Monocytes 14 % (0-10); Myelocyte 1 % (0-0); Neutrophil 29 % (42-75); Platelet Morphology Comment Appears Decreased; Polychromasia SLIGHT = 2-3 cells (100X) (0-2/hpf)
[2022-02-01] MEDS: Iron, Sodium Ferric Gluconate 250 MG in Sodium Chloride 0.9% 250 ML 250 ML IVPB SCH (11:38)
[2022-02-02 07:42] LABS: Hemoglobin 8.9 g/dL (14.0-18.0); Mean Corpuscular HGB CONC 33.8 g/dL (32.0-36.0); Mean Corpuscular Hemoglobin 33.2 pg (27.0-31.0); Mean Corpuscular Volume 98.4 fl (78.0-98.0); Mean Platelet Volume 7.4 fL (7.4-10.4); Platelet Count 92 10x3/uL (130-400); RBC Distribution Width 12.3 % (11.5-14.5); Red Blood Cell (RBC) Count 2.67 mill/uL (4.70-6.10); White Blood Cell (WBC) Count 6.4 10x3/uL (4.8-10.8)
[2022-02-02 08:11] LABS: Anion Gap 14 mmol/L (10-20); BUN (Urea Nitrogen) 61 mg/dL (8.9-20.6); Calc. Creatinine Clearance 38 mL/min (70-130); Carbon Dioxide 22 mmol/L (22-29); Chloride 99 mmol/L (98-107); Estimated GFR 32; Glucose 153 mg/dL (70-105); Sodium 131 mmol/L (136-145)
[2022-02-02] MEDS: Aspirin 325 mg Enteric Coated Tablet PO SCH (09:34)
[2022-02-02] MEDS: Carvedilol 3.125 MG TAB PO SCH ×2 (09:34→20:42)
[2022-02-02] MEDS: levETIRAcetam 500 MG TAB PO SCH ×2 (09:34→20:42)
[2022-02-02] MEDS: risperiDONE 1 MG TAB PO SCH ×2 (09:34→20:43)
[2022-02-02] MEDS: Benzonatate 100 MG CAP PO SCH ×3 (09:34→20:42)
[2022-02-02] MEDS: Sodium Chloride 0.9% 1,000 ML IV SCH ×2 (09:42→17:53)
[2022-02-02 10:43] LABS: Band 25 % (5-11); Lymphocytes 26 % (21-51); MDiff Complete? YES; Metamyelocyte 1 % (0-0); Monocytes 11 % (0-10); Myelocyte 2 % (0-0); Neutrophil 34 % (42-75); Platelet Morphology Comment Appears Decreased; Polychromasia SLIGHT = 2-3 cells (100X) (0-2/hpf); Reactive Lymphocytes 1 % (0-10)
[2022-02-02] MEDS: Acetaminophen 325 MG TAB PO PRN (13:08)
[2022-02-02] MEDS: Iron, Sodium Ferric Gluconate 250 MG in Sodium Chloride 0.9% 250 ML 250 ML IVPB SCH (13:10)
[2022-02-02] MEDS: HumaLOG 300 UNITS/3 ML VIAL SC PRN (17:14)
[2022-02-03] MEDS ORDERED: Mag-Al 1200 mg/1200 mg/30 ML UDCUP PO SCH (04:45)
[2022-02-03 05:32] LABS: #Eosinphils 0.1 thou/uL (0.0-0.7); #Lymphocytes 1.3 thou/uL (1.20-3.40); #Monocytes 0.9 thou/uL (0.11-0.59); %Basophils 0.1 % (0.0-1.0); %Eosinophils 1.2 % (0.0-10.0); %Lymphocytes 20.5 % (21.0-51.0); %Monocytes 14.3 % (0.0-10.0); %Neutrophils 63.9 % (42.0-75.0); Hemoglobin 8.5 g/dL (14.0-18.0); Mean Corpuscular HGB CONC 33.5 g/dL (32.0-36.0); Mean Corpuscular Hemoglobin 33.1 pg (27.0-31.0); Mean Corpuscular Volume 98.7 fl (78.0-98.0); Mean Platelet Volume 7.4 fL (7.4-10.4); Platelet Count 89 10x3/uL (130-400); RBC Distribution Width 12.6 % (11.5-14.5); Red Blood Cell (RBC) Count 2.58 mill/uL (4.70-6.10); White Blood Cell (WBC) Count 6.3 10x3/uL (4.8-10.8)
[2022-02-03 05:55] LABS: Anion Gap 13 mmol/L (10-20); BUN (Urea Nitrogen) 58 mg/dL (8.9-20.6); Calc. Creatinine Clearance 37 mL/min (70-130); Calcium 8.1 mg/dL (7.8-10.44); Carbon Dioxide 21 mmol/L (22-29); Chloride 100 mmol/L (98-107); Estimated GFR 31; Glucose 177 mg/dL (70-105); Magnesium 2.5 mg/dL (1.6-2.6); Potassium 3.6 mmol/L (3.5-5.1); Sodium 130 mmol/L (136-145)
[2022-02-03] MEDS: HumaLOG 300 UNITS/3 ML VIAL SC PRN (06:15)
[2022-02-03 08:13] VITALS: BP 156/73; TEMP 97.3
[2022-02-03] MEDS: Benzonatate 100 MG CAP PO SCH (08:45)
[2022-02-03] MEDS: Aspirin 325 mg Enteric Coated Tablet PO SCH (08:45)
[2022-02-03] MEDS: Carvedilol 3.125 MG TAB PO SCH (08:45)
[2022-02-03] MEDS: risperiDONE 1 MG TAB PO SCH (08:46)
[2022-02-03] MEDS: levETIRAcetam 500 MG TAB PO SCH (08:46)
[2022-02-03] MEDS ORDERED: Sodium Bicarbonate Tab 325 MG TAB PO SCH (09:00)
== END 2022-02-03 11:07 | disposition home or self-care (01) | DRG 280 ==
LOC: ERS 13:36 → 2SW 16:06 → OBSVTOIN 01-29 15:32
PROVIDERS: ADMIT Internal Medicine; ATTEND Internal Medicine
DX: I13.0 Hypertensive heart and chronic kidney disease with heart failure and stage 1 through stage 4 chronic kidney disease, or unspecified chronic kidney disease (principal); I50.43 Acute on chronic combined systolic (congestive) and diastolic (congestive) heart failure; I21.A1 Myocardial infarction type 2; J10.00 Influenza due to other identified influenza virus with unspecified type of pneumonia; J96.01 Acute respiratory failure with hypoxia; N17.9 Acute kidney failure, unspecified; I45.2 Bifascicular block; E87.1 Hypo-osmolality and hyponatremia; N18.30 Chronic kidney disease, stage 3 unspecified; G47.33 Obstructive sleep apnea (adult) (pediatric); G40.909 Epilepsy, unspecified, not intractable, without status epilepticus; D63.1 Anemia in chronic kidney disease; E11.22 Type 2 diabetes mellitus with diabetic chronic kidney disease; D69.6 Thrombocytopenia, unspecified; D50.9 Iron deficiency anemia, unspecified; Z88.5 Allergy status to narcotic agent; Z79.899 Other long term (current) drug therapy; Z79.4 Long term (current) use of insulin; E83.51 Hypocalcemia; E88.09 Other disorders of plasma-protein metabolism, not elsewhere classified
CPT/HCPCS: 36415; 36416; 36430; 71045; 80048; 80053; 80069; 81003; 81015; 82306; 82550; 82553; 82570; 82728; 83036; 83540; 83550; 83735; 83880; 84156; 84300; 84484; 84540; 85014; 85018; 85025; 85049; 85730; 86850; 86900; 86901; 87324; 87449; 87505; 87811; 93005; 93010; 93306; 94760; 96374; 96376; G0378; J1644; J1815; J1940; J2916; J7050; P9016; P9047; Q5105

== ENCOUNTER 2022-04-27 07:01 | Inpatient (IN) | payer MEDICARE, MEDICAID ==
[2022-04-27 08:02] LABS: #Lymphocytes 1.5 thou/uL (1.20-3.40); #Monocytes 0.7 thou/uL (0.11-0.59); #Neutrophils 3.4 thou/uL (1.40-6.50); %Basophils 0.7 % (0.0-1.0); %Eosinophils 0.2 % (0.0-10.0); %Lymphocytes 26.5 % (21.0-51.0); %Monocytes 11.9 % (0.0-10.0); %Neutrophils 60.8 % (42.0-75.0); Hemoglobin 10.1 g/dL (14.0-18.0); Mean Corpuscular HGB CONC 33.6 g/dL (32.0-36.0); Mean Corpuscular Hemoglobin 34.4 pg (27.0-31.0); Mean Platelet Volume 9.4 fL (7.4-10.4); Platelet Count 55 10x3/uL (130-400); RBC Distribution Width 13.1 % (11.5-14.5); Red Blood Cell (RBC) Count 2.93 mill/uL (4.70-6.10); White Blood Cell (WBC) Count 5.6 10x3/uL (4.8-10.8)
[2022-04-27 08:12] LABS: ALT (SGPT) 9 U/L (8-55); AST (SGOT) 17 U/L (5-34); Albumin 2.7 g/dL (3.5-5.0); Alkaline Phosphatase 61 U/L (40-110); Anion Gap 11 mmol/L (10-20); BUN (Urea Nitrogen) 22 mg/dL (8.9-20.6); Bilirubin, Total 0.5 mg/dL (0.2-1.2); Calc. Creatinine Clearance 0 mL/min (70-130); Calcium 7.9 mg/dL (7.8-10.44); Carbon Dioxide 28 mmol/L (22-29); Chloride 101 mmol/L (98-107); Estimated GFR 55; Globulin 3.3 g/dL (2.4-3.5); Glucose 107 mg/dL (70-105); Potassium 4.5 mmol/L (3.5-5.1); Sodium 135 mmol/L (136-145)
[2022-04-27 08:35] LABS: CKMB 5.5 ng/mL (0-6.6)
[2022-04-27] MEDS ORDERED: Furosemide 100 MG/10 ML VIAL ONE (11:52)
[2022-04-27] MEDS ORDERED: Aspirin Chewable 81 MG TAB ONE (11:52)
[2022-04-27] MEDS ORDERED: Nitroglycerin 2% Ointment 1 INCH/1 GM Packet ONE (11:52)
[2022-04-27] MEDS ORDERED: Ondansetron PF 4 MG/2 ML Vial IVP PRN (12:36)
[2022-04-27] MEDS ORDERED: Calcium Carbonate 500 MG ChewTAB PO PRN (12:36)
[2022-04-27] MEDS ORDERED: Senokot S 8.6-50 MG TAB PO PRN (12:36)
[2022-04-27 16:01] VITALS: BMI 27.2
[2022-04-27 16:52] LABS: Troponin I 0.081 ng/mL (< 0.028)
[2022-04-27] MEDS ORDERED: Furosemide 20 MG/2 ML VIAL SLOW IVP SCH (18:00)
[2022-04-27] MEDS ORDERED: HumaLOG 300 UNITS/3 ML VIAL SC PRN ×2 (18:02)
[2022-04-27] MEDS ORDERED: Dextrose 5% in Water 1,000 ML IV PRN (18:02)
[2022-04-27] MEDS ORDERED: Dextrose 50% Abboject 50 ML SYRINGE SLOW IVP PRN (18:02)
[2022-04-27] MEDS ORDERED: Albumin 25% 25 GM/100 ML BOT IVPB SCH (18:15)
[2022-04-27] MEDS: Carvedilol 3.125 MG TAB PO SCH (20:10)
[2022-04-27] MEDS: risperiDONE 1 MG TAB PO SCH (20:10)
[2022-04-27] MEDS: levETIRAcetam 500 MG TAB PO SCH (20:10)
[2022-04-28 04:14] LABS: #Lymphocytes 1.4 thou/uL (1.20-3.40); #Monocytes 0.4 thou/uL (0.11-0.59); #Neutrophils 1.4 thou/uL (1.40-6.50); %Basophils 0.4 % (0.0-1.0); %Eosinophils 1.1 % (0.0-10.0); %Lymphocytes 42.9 % (21.0-51.0); %Monocytes 12.6 % (0.0-10.0); %Neutrophils 43.1 % (42.0-75.0); Hemoglobin 9.6 g/dL (14.0-18.0); Mean Corpuscular HGB CONC 33.4 g/dL (32.0-36.0); Mean Corpuscular Hemoglobin 34.4 pg (27.0-31.0); Mean Platelet Volume 9.7 fL (7.4-10.4); Platelet Count 50 10x3/uL (130-400); RBC Distribution Width 13.3 % (11.5-14.5); White Blood Cell (WBC) Count 3.3 10x3/uL (4.8-10.8)
[2022-04-28 04:36] LABS: ALT (SGPT) 7 U/L (8-55); AST (SGOT) 11 U/L (5-34); Albumin 2.8 g/dL (3.5-5.0); Alkaline Phosphatase 61 U/L (40-110); Anion Gap 11 mmol/L (10-20); BUN (Urea Nitrogen) 20 mg/dL (8.9-20.6); BUN/Creatinine Ratio 13.61; Bilirubin, Total 0.4 mg/dL (0.2-1.2); Calc. Creatinine Clearance 72 mL/min (70-130); Calcium 8.1 mg/dL (7.8-10.44); Carbon Dioxide 30 mmol/L (22-29); Chloride 100 mmol/L (98-107); Estimated GFR 61; Glucose 137 mg/dL (70-105); Magnesium 2.1 mg/dL (1.6-2.6); Phosphorus 4.5 mg/dL (2.3-4.7); Potassium 4.1 mmol/L (3.5-5.1); Protein, Total 5.8 g/dL (6.0-8.3); Sodium 137 mmol/L (136-145)
[2022-04-28] MEDS: Aspirin 81 mg Enteric Coated Tablet PO SCH (09:14)
[2022-04-28] MEDS: Ferrous Sulfate 325 MG TAB PO SCH (09:14)
[2022-04-28] MEDS: Empagliflozin 10 MG TAB PO SCH (09:14)
[2022-04-28] MEDS: Carvedilol 3.125 MG TAB PO SCH ×2 (09:14→20:03)
[2022-04-28] MEDS: risperiDONE 1 MG TAB PO SCH ×2 (09:15→20:03)
[2022-04-28] MEDS: Spironolactone 25 MG TAB PO SCH (09:15)
[2022-04-28] MEDS: levETIRAcetam 500 MG TAB PO SCH ×2 (09:15→20:03)
[2022-04-28] MEDS: Furosemide 40 MG/4 ML VIAL SLOW IVP SCH (13:26)
[2022-04-28] MEDS: Albumin 25% 25 GM/100 ML BOT IVPB SCH ×2 (18:07→23:42)
[2022-04-29 04:58] LABS: Anion Gap 9 mmol/L (10-20); BUN (Urea Nitrogen) 18 mg/dL (8.9-20.6); Calc. Creatinine Clearance 73 mL/min (70-130); Calcium 8.1 mg/dL (7.8-10.44); Carbon Dioxide 33 mmol/L (22-29); Chloride 102 mmol/L (98-107); Estimated GFR 62; Glucose 106 mg/dL (70-105); Potassium 4.1 mmol/L (3.5-5.1); Sodium 140 mmol/L (136-145)
[2022-04-29] MEDS: Albumin 25% 25 GM/100 ML BOT IVPB SCH (05:20)
[2022-04-29] MEDS: Furosemide 40 MG/4 ML VIAL SLOW IVP SCH ×2 (05:20→20:04)
[2022-04-29] MEDS: Aspirin 81 mg Enteric Coated Tablet PO SCH (09:01)
[2022-04-29] MEDS: Carvedilol 3.125 MG TAB PO SCH ×2 (09:01→20:04)
[2022-04-29] MEDS: levETIRAcetam 500 MG TAB PO SCH ×2 (09:01→20:04)
[2022-04-29] MEDS: Ferrous Sulfate 325 MG TAB PO SCH (09:01)
[2022-04-29] MEDS: Empagliflozin 10 MG TAB PO SCH (09:01)
[2022-04-29] MEDS: risperiDONE 1 MG TAB PO SCH ×2 (09:01→20:04)
[2022-04-29] MEDS: Spironolactone 25 MG TAB PO SCH (09:01)
[2022-04-29] MEDS: Metolazone 2.5 MG TAB PO SCH (09:31)
[2022-04-29] MEDS: AcetaZOLAMIDE 250 MG TAB PO SCH ×2 (09:31→20:03)
[2022-04-30 05:34] LABS: #Eosinphils 0.1 thou/uL (0.0-0.7); #Lymphocytes 1.7 thou/uL (1.20-3.40); #Monocytes 0.4 thou/uL (0.11-0.59); #Neutrophils 1.6 thou/uL (1.40-6.50); %Basophils 0.3 % (0.0-1.0); %Eosinophils 1.9 % (0.0-10.0); %Monocytes 11.4 % (0.0-10.0); %Neutrophils 41.5 % (42.0-75.0); Hemoglobin 8.9 g/dL (14.0-18.0); Mean Corpuscular HGB CONC 33.1 g/dL (32.0-36.0); Mean Corpuscular Hemoglobin 34.5 pg (27.0-31.0); Mean Platelet Volume 8.9 fL (7.4-10.4); Platelet Count 57 10x3/uL (130-400); RBC Distribution Width 13.3 % (11.5-14.5); Red Blood Cell (RBC) Count 2.59 mill/uL (4.70-6.10); White Blood Cell (WBC) Count 3.8 10x3/uL (4.8-10.8)
[2022-04-30 05:41] LABS: Anion Gap 12 mmol/L (10-20); BUN (Urea Nitrogen) 19 mg/dL (8.9-20.6); Calc. Creatinine Clearance 68 mL/min (70-130); Calcium 8.2 mg/dL (7.8-10.44); Carbon Dioxide 29 mmol/L (22-29); Chloride 103 mmol/L (98-107); Estimated GFR 60; Glucose 88 mg/dL (70-105); Potassium 3.7 mmol/L (3.5-5.1); Sodium 140 mmol/L (136-145)
[2022-04-30 05:43] LABS: Albumin 2.8 g/dL (3.5-5.0)
[2022-04-30] MEDS ORDERED: Iron, Sodium Ferric Gluconate 250 MG in Sodium Chloride 0.9% 250 ML 250 ML IVPB SCH (07:30)
[2022-04-30 07:52] VITALS: TEMP 97.7
[2022-04-30] MEDS: AcetaZOLAMIDE 250 MG TAB PO SCH (09:19)
[2022-04-30] MEDS: Spironolactone 25 MG TAB PO SCH (09:19)
[2022-04-30] MEDS: Empagliflozin 10 MG TAB PO SCH (09:19)
[2022-04-30] MEDS: Aspirin 81 mg Enteric Coated Tablet PO SCH (09:19)
[2022-04-30] MEDS: Ferrous Sulfate 325 MG TAB PO SCH (09:19)
[2022-04-30] MEDS: levETIRAcetam 500 MG TAB PO SCH (09:19)
[2022-04-30] MEDS: Furosemide 40 MG/4 ML VIAL SLOW IVP SCH (09:19)
[2022-04-30] MEDS: Metolazone 2.5 MG TAB PO SCH (09:19)
[2022-04-30] MEDS: risperiDONE 1 MG TAB PO SCH (09:19)
[2022-04-30] MEDS: Carvedilol 3.125 MG TAB PO SCH (09:20)
[2022-04-30] MEDS ORDERED: Albumin 25% 25 GM/100 ML BOT IVPB SCH (12:00)
[2022-04-30 12:09] VITALS: BP 144/69
== END 2022-04-30 14:00 | disposition home or self-care (01) | DRG 291 ==
LOC: SUATTDRO 07:01 → ERS 07:01 → ERHOLD 12:26 → 2NO 15:37
PROVIDERS: ADMIT Family Medicine; ATTEND Family Medicine
DX: I13.2 Hypertensive heart and chronic kidney disease with heart failure and with stage 5 chronic kidney disease, or end stage renal disease (principal); I50.43 Acute on chronic combined systolic (congestive) and diastolic (congestive) heart failure; N17.9 Acute kidney failure, unspecified; E87.3 Alkalosis; I24.8 Other forms of acute ischemic heart disease; N18.30 Chronic kidney disease, stage 3 unspecified; G40.909 Epilepsy, unspecified, not intractable, without status epilepticus; D63.1 Anemia in chronic kidney disease; R62.50 Unspecified lack of expected normal physiological development in childhood; E11.22 Type 2 diabetes mellitus with diabetic chronic kidney disease; I42.8 Other cardiomyopathies; E88.09 Other disorders of plasma-protein metabolism, not elsewhere classified; Z88.5 Allergy status to narcotic agent; Z79.899 Other long term (current) drug therapy; Z79.82 Long term (current) use of aspirin; Z95.2 Presence of prosthetic heart valve; Z87.74 Personal history of (corrected) congenital malformations of heart and circulatory system
CPT/HCPCS: 36415; 36416; 71045; 76700; 80048; 80053; 80069; 82040; 82553; 82728; 83540; 83550; 83735; 83880; 84484; 85025; 93005; 96374; 97139; J1650; J1940; J2916; J7050; P9047

== ENCOUNTER 2022-08-30 07:52 | Inpatient (IN) | payer MEDICARE, MEDICAID ==
[2022-08-30 08:49] LABS: #Monocytes 0.5 thou/uL (0.11-0.59); #Neutrophils 3.8 thou/uL (1.40-6.50); %Basophils 0.2 % (0.0-1.0); %Eosinophils 0.4 % (0.0-10.0); %Lymphocytes 17.6 % (21.0-51.0); %Monocytes 8.7 % (0.0-10.0); %Neutrophils 72.7 % (42.0-75.0); Hemoglobin 7.7 g/dL (14.0-18.0); Mean Corpuscular HGB CONC 33.9 g/dL (32.0-36.0); Mean Corpuscular Hemoglobin 33.9 pg (27.0-31.0); Mean Platelet Volume 10.9 fL (7.4-10.4); RBC Distribution Width 14.7 % (11.5-14.5); Red Blood Cell (RBC) Count 2.27 mill/uL (4.70-6.10); White Blood Cell (WBC) Count 5.2 10x3/uL (4.8-10.8)
[2022-08-30 08:55] LABS: Platelet Count 49 10x3/uL (130-400)
[2022-08-30 09:03] LABS: INR-International Normal Ratio 1.3; Prothrombin Time 16.5 sec (12.0-14.7)
[2022-08-30 09:06] LABS: Bacteria/HPF None Seen HPF (None Seen); Bilirubin Negative (Negative); Blood, Urine 1+ (Negative); CAUTI Indications for Culture Dysuria,urgency,freq; Clarity Clear (Clear); Glucose, Urine (Dipstick) Normal (Negative); Ketone, Urine Negative (Negative); Leukocyte Negative Leu/uL (Negative); Nitrite Negative (Negative); Protein, Urine (Dipstick) 100 mg/dL (Neg-Trace); RBC/HPF 0-3 HPF (0-3); Squamous Epithelial None Seen HPF (0-3); Urobilinogen Normal mg/dL (Less than 2); WBC/HPF None Seen HPF (0-3); pH, Urine 5.5 (5.0-9.0)
[2022-08-30 09:08] LABS: Urine Culture Reflex No No
[2022-08-30 09:10] LABS: ALT (SGPT) Less than 7 U/L (8-55); AST (SGOT) 16 U/L (5-34); Albumin 2.8 g/dL (3.5-5.0); Alkaline Phosphatase 66 U/L (40-110); Anion Gap 17 mmol/L (10-20); BUN (Urea Nitrogen) 58 mg/dL (8.9-20.6); Bilirubin, Total 0.3 mg/dL (0.2-1.2); Calc. Creatinine Clearance 0 mL/min (70-130); Calcium 7.5 mg/dL (7.8-10.44); Carbon Dioxide 22 mmol/L (22-29); Chloride 93 mmol/L (98-107); Estimated GFR 38; Globulin 3.5 g/dL (2.4-3.5); Glucose 108 mg/dL (70-105); Potassium 5.6 mmol/L (3.5-5.1); Protein, Total 6.3 g/dL (6.0-8.3); Sodium 126 mmol/L (136-145)
[2022-08-30] MEDS ORDERED: Furosemide 40 MG/4 ML VIAL ONE ×2 (09:12→14:14)
[2022-08-30] MEDS ORDERED: Aspirin Chewable 81 MG TAB ONE (09:12)
[2022-08-30 09:31] LABS: CKMB 6.1 ng/mL (0-6.6)
[2022-08-30 09:34] LABS: SARS-CoV-2 NAA Rapid Test Not Detected (NotDetected)
[2022-08-30] MEDS ORDERED: Insulin Regular 300 UNITS/3 ML VIAL ONE (10:43)
[2022-08-30] MEDS ORDERED: Dextrose 50% Abboject 50 ML SYRINGE ONE (10:43)
[2022-08-30] MEDS ORDERED: Calcium Chloride 1 GM/10 ML Abboject SYRINGE ONE (10:43)
[2022-08-30 12:39] LABS: Troponin I 0.126 ng/mL (< 0.028)
[2022-08-30] MEDS ORDERED: HumaLOG 300 UNITS/3 ML VIAL SC PRN ×2 (12:44)
[2022-08-30] MEDS ORDERED: Dextrose 50% Abboject 50 ML SYRINGE SLOW IVP PRN (12:44)
[2022-08-30] MEDS ORDERED: Glucagon 1 MG/ML KIT IM PRN (12:44)
[2022-08-30] MEDS ORDERED: Dextrose 5% in Water 1,000 ML IV PRN (12:44)
[2022-08-30] MEDS ORDERED: Metolazone 5 MG TAB PO SCH (14:00)
[2022-08-30] MEDS ORDERED: Albumin 25% 25 GM/100 ML BOT IVPB SCH (14:15)
[2022-08-30] MEDS: Furosemide 40 MG/4 ML VIAL SLOW IVP SCH ×2 (14:21→21:05)
[2022-08-30 15:32] LABS: Anion Gap 16 mmol/L (10-20); BUN (Urea Nitrogen) 54 mg/dL (8.9-20.6); Calc. Creatinine Clearance 0 mL/min (70-130); Calcium 8.6 mg/dL (7.8-10.44); Carbon Dioxide 24 mmol/L (22-29); Chloride 91 mmol/L (98-107); Estimated GFR 40; Glucose 75 mg/dL (70-105); Potassium 4.7 mmol/L (3.5-5.1); Sodium 126 mmol/L (136-145)
[2022-08-30 15:33] LABS: Troponin I 0.131 ng/mL (< 0.028)
[2022-08-30 16:58] VITALS: BMI 27.3
[2022-08-30] MEDS ORDERED: Sacubitril 24MG/Valsartan 26 MG TAB PO SCH (21:00)
[2022-08-30] MEDS: risperiDONE 1 MG TAB PO SCH (21:04)
[2022-08-30] MEDS: Carvedilol 3.125 MG TAB PO SCH (21:04)
[2022-08-30] MEDS: levETIRAcetam 500 MG TAB PO SCH (21:04)
[2022-08-31] MEDS: Furosemide 40 MG/4 ML VIAL SLOW IVP SCH ×3 (05:02→20:54)
[2022-08-31 05:45] LABS: #Monocytes 0.3 thou/uL (0.11-0.59); #Neutrophils 1.3 thou/uL (1.40-6.50); %Eosinophils 0.8 % (0.0-10.0); %Lymphocytes 32.8 % (21.0-51.0); %Monocytes 13.4 % (0.0-10.0); %Neutrophils 52.2 % (42.0-75.0); Hemoglobin 7.5 g/dL (14.0-18.0); Mean Corpuscular HGB CONC 33.2 g/dL (32.0-36.0); Mean Corpuscular Hemoglobin 33.5 pg (27.0-31.0); Mean Corpuscular Volume 100.9 fl (78.0-98.0); Mean Platelet Volume 11.6 fL (7.4-10.4); RBC Distribution Width 14.6 % (11.5-14.5); Red Blood Cell (RBC) Count 2.24 mill/uL (4.70-6.10); White Blood Cell (WBC) Count 2.5 10x3/uL (4.8-10.8)
[2022-08-31 05:47] LABS: Platelet Count 46 10x3/uL (130-400)
[2022-08-31 05:53] LABS: ALT (SGPT) Less than 7 U/L (8-55); AST (SGOT) 8 U/L (5-34); Albumin 2.9 g/dL (3.5-5.0); Alkaline Phosphatase 63 U/L (40-110); Anion Gap 14 mmol/L (10-20); BUN (Urea Nitrogen) 60 mg/dL (8.9-20.6); Bilirubin, Total 0.4 mg/dL (0.2-1.2); Calc. Creatinine Clearance 49 mL/min (70-130); Calcium 8.2 mg/dL (7.8-10.44); Carbon Dioxide 28 mmol/L (22-29); Chloride 92 mmol/L (98-107); Estimated GFR 37; Globulin 2.7 g/dL (2.4-3.5); Glucose 175 mg/dL (70-105); Potassium 5.2 mmol/L (3.5-5.1); Protein, Total 5.6 g/dL (6.0-8.3); Sodium 129 mmol/L (136-145)
[2022-08-31 06:25] LABS: CKMB 5.6 ng/mL (0-6.6)
[2022-08-31 07:08] LABS: Iron 72 ug/dL (65-175); Iron Binding Capacity, Total 245 mcg/dL (261-462)
[2022-08-31] MEDS: Albumin 25% 25 GM/100 ML BOT IVPB SCH ×4 (07:50→19:19)
[2022-08-31] MEDS: risperiDONE 1 MG TAB PO SCH ×2 (07:58→20:54)
[2022-08-31] MEDS: Aspirin 81 mg Enteric Coated Tablet PO SCH (07:58)
[2022-08-31] MEDS: levETIRAcetam 500 MG TAB PO SCH ×2 (07:58→20:54)
[2022-08-31] MEDS: Carvedilol 3.125 MG TAB PO SCH ×2 (07:58→20:54)
[2022-08-31] MEDS: Ferrous Sulfate 325 MG TAB PO SCH (07:59)
[2022-08-31] MEDS ORDERED: Sacubitril 24MG/Valsartan 26 MG TAB PO SCH (09:00)
[2022-08-31] MEDS ORDERED: Empagliflozin 10 MG TAB PO SCH (09:00)
[2022-08-31] MEDS ORDERED: Acetaminophen 325 MG TAB PO PRN (09:15)
[2022-08-31] MEDS ORDERED: Metolazone 5 MG TAB PO SCH (14:15)
[2022-08-31] MEDS ORDERED: EPOETIN ALFA-EPBX (ESRD) 10,000 UNITS/ML VIAL SC SCH (15:00)
[2022-08-31] MEDS: Senokot S 8.6-50 MG TAB PO SCH (20:54)
[2022-09-01] MEDS: Albumin 25% 25 GM/100 ML BOT IVPB SCH ×2 (05:34)
[2022-09-01] MEDS: Furosemide 40 MG/4 ML VIAL SLOW IVP SCH ×3 (05:35→21:46)
[2022-09-01 06:22] LABS: #Monocytes 0.4 thou/uL (0.11-0.59); #Neutrophils 2.4 thou/uL (1.40-6.50); %Basophils 0.3 % (0.0-1.0); %Lymphocytes 18.6 % (21.0-51.0); %Monocytes 11.9 % (0.0-10.0); %Neutrophils 68.6 % (42.0-75.0); Hemoglobin 7.4 g/dL (14.0-18.0); Mean Corpuscular HGB CONC 32.3 g/dL (32.0-36.0); Mean Corpuscular Hemoglobin 33.8 pg (27.0-31.0); Mean Corpuscular Volume 104.6 fl (78.0-98.0); Mean Platelet Volume 11.6 fL (7.4-10.4); Red Blood Cell (RBC) Count 2.19 mill/uL (4.70-6.10); White Blood Cell (WBC) Count 3.4 10x3/uL (4.8-10.8)
[2022-09-01 06:29] LABS: Phosphorus 5.2 mg/dL (2.3-4.7)
[2022-09-01 06:33] LABS: ALT (SGPT) Less than 7 U/L (8-55); AST (SGOT) 7 U/L (5-34); Albumin 3.8 g/dL (3.5-5.0); Alkaline Phosphatase 50 U/L (40-110); Anion Gap 15 mmol/L (10-20); BUN (Urea Nitrogen) 61 mg/dL (8.9-20.6); Bilirubin, Total 0.5 mg/dL (0.2-1.2); Calc. Creatinine Clearance 50 mL/min (70-130); Calcium 8.8 mg/dL (7.8-10.44); Carbon Dioxide 28 mmol/L (22-29); Chloride 92 mmol/L (98-107); Estimated GFR 39; Globulin 2.7 g/dL (2.4-3.5); Glucose 117 mg/dL (70-105); Magnesium 2.5 mg/dL (1.6-2.6); Protein, Total 6.5 g/dL (6.0-8.3); Sodium 130 mmol/L (136-145)
[2022-09-01 06:51] LABS: Platelet Count 44 10x3/uL (130-400)
[2022-09-01] MEDS ORDERED: Metolazone 5 MG TAB PO SCH (08:30)
[2022-09-01] MEDS ORDERED: Folic Acid/Vit B Comp W-C PO SCH (09:00)
[2022-09-01] MEDS: Ferrous Sulfate 325 MG TAB PO SCH (09:39)
[2022-09-01] MEDS: Aspirin 81 mg Enteric Coated Tablet PO SCH (09:39)
[2022-09-01] MEDS: Carvedilol 3.125 MG TAB PO SCH ×2 (09:39→21:45)
[2022-09-01] MEDS: risperiDONE 1 MG TAB PO SCH ×2 (09:40→21:45)
[2022-09-01] MEDS: levETIRAcetam 500 MG TAB PO SCH ×2 (09:40→21:43)
[2022-09-01] MEDS ORDERED: Empagliflozin 10 MG TAB PO SCH (12:00)
[2022-09-01] MEDS ORDERED: Sacubitril 24MG/Valsartan 26 MG TAB PO SCH ×2 (12:00→21:00)
[2022-09-01 19:23] VITALS: BP 129/77; TEMP 98.7
[2022-09-01] MEDS: Senokot S 8.6-50 MG TAB PO SCH (21:45)
[2022-09-02] MEDS ORDERED: Empagliflozin 10 MG TAB PO SCH (09:00)
== END 2022-09-02 03:00 | disposition expired ==
LOC: ERS 07:52 → ERHOLD 11:29 → 2SW 16:17 → OBSVTOIN 08-31 10:21
PROVIDERS: ADMIT Internal Medicine; ATTEND Internal Medicine
PROC: 30233J1 Transfusion of Nonautologous Serum Albumin into Peripheral Vein, Percutaneous Approach (ICD-10-PCS; principal; 2022-08-31)
DX: I13.0 Hypertensive heart and chronic kidney disease with heart failure and stage 1 through stage 4 chronic kidney disease, or unspecified chronic kidney disease (principal); I50.43 Acute on chronic combined systolic (congestive) and diastolic (congestive) heart failure; I21.A1 Myocardial infarction type 2; E87.1 Hypo-osmolality and hyponatremia; N17.9 Acute kidney failure, unspecified; Z66 Do not resuscitate; N18.30 Chronic kidney disease, stage 3 unspecified; R62.50 Unspecified lack of expected normal physiological development in childhood; E11.22 Type 2 diabetes mellitus with diabetic chronic kidney disease; E87.6 Hypokalemia; D63.1 Anemia in chronic kidney disease; E83.51 Hypocalcemia; Z20.822 Contact with and (suspected) exposure to COVID-19; D69.6 Thrombocytopenia, unspecified; Z88.5 Allergy status to narcotic agent; Z98.890 Other specified postprocedural states; Z95.2 Presence of prosthetic heart valve; Z79.899 Other long term (current) drug therapy; Z79.82 Long term (current) use of aspirin
CPT/HCPCS: 36415; 36416; 71045; 80053; 81001; 82306; 82553; 82728; 83540; 83550; 83605; 83735; 83880; 84100; 84443; 84484; 85025; 85610; 85730; 93005; 94760; 96374; 96375; 96376; G0378; J1815; J1940; J7999; P9047; Q5105